=== PATIENT | male | born 1955 | race Caucasian/White ===

== ENCOUNTER 2018-09-02 08:38 | Emergency (ER) | payer SELFPAY ==
[2018-09-02 08:38] VITALS: BP 122/69; PULSE 50; RESP 14; TEMP 36.6; O2SAT 100; BMI 20.3
--- NOTE | 2018-09-02 08:54 | CT_ITS ---
STUDY: CT ABDOMEN AND PELVIS WITH CONTRAST REASON FOR EXAM: Male, 63 years old. Epigastric pain. RADIATION DOSAGE (If Supplied By Facility): CTDIvol = ( 12.21 ) mGy, DLP = ( 410.29 ) mGycm TECHNIQUE: Transaxial images were obtained from the dome of the diaphragm to the symphysis pubis with oral contrast. 100 IV/Oral Isovue 300 was administered. Sagittal and coronal images were reconstructed. Individualized dose optimization techniques were used for this CT. COMPARISON: Comparison is made with prior examination dated August 28, 2007. FINDINGS: The visualized lung bases are unremarkable. The visualized portions of the heart are within normal limits. Normal liver. Normal gallbladder and extrahepatic biliary system. Normal spleen. Normal pancreas. Normal bilateral adrenal glands. Normal right kidney. Normal left kidney. Normal visualized stomach. Normal small intestine. Normal colon. The appendix is visualized and appears normal. Normal abdominal aorta. Normal inferior vena cava. Normal retroperitoneum. Normal urinary bladder. There is enlargement of the prostate gland. It measures 5.3 cm x 4.1 cm. This causes indentation at the bladder base. Normal abdominal wall. Normal osseous structures. CT/Abdomen/Pelvis WITH Contrast IMPRESSION: Prostatic enlargement. Electronically Signed: Nomi Ferrara, at 11:06 EDT , Service support ,
--- NOTE | 2018-09-02 08:55 | ED.VIS.GEN ---
History of Present Illness Chief Complaint: Abd Pain Informant: Patient Onset: Today Timing: Continuous Current Severity: Moderate Maximum Severity: Moderate Narrative: Patient presents with abdominal pain that started earlier this morning. He has nausea vomiting no diarrhea. He has no back pain. He denies any testicle pain or urinary symptoms. The pain woke him up from sleep. It is periumbilical. He has a complicated history, about 10 years ago apparently had appendicitis with an abscess that ended up having percutaneous drainage and treated medically with antibiotics, he never followed up for an appendectomy has been okay since then. Past Medical History - Allergies and Home Meds Allergies/Adverse Reactions: Allergies No Known Allergies Allergy (Verified 09/02/18 08:38) Primary Care Physician: NOT,DEFINED [NON-STAFF] - Prior records reviewed: Yes Past Medical History: - - Appendicitis without appendectomy Lives: Spouse/ Significant Other Drugs: None Review of Systems All systems negative except as indicated General: Denies: Fever Cardiovascular: Denies: Chest pain Respiratory: Denies: Dyspnea Gastrointestinal: Reports: Abdominal pain, Nausea, Vomiting. Denies: Diarrhea, Constipation Genitourinary: Denies: Dysuria, Hematuria Musculoskeletal: Denies: Back pain Skin: Denies: Abrasions Neurological: Denies: Weakness Psych: Denies: Anxiety Endocrine: Denies: Polyuria Physical Exam Vital Signs/Narrative: Vital Signs Temp Pulse Resp BP Pulse Ox 09/02/18 08:38 97.8 F 50 L 14 122/69 H 100 General: Well nourished, Well developed, Acute Distress - Appears in some distress Head: Normocephalic, Atraumatic Eyes: Perrl, EOMI ENT: Moist mucous membranes, No rhinorrhea Neck: Supple, Nontender Cardiovascular: Regular rate, Regular rhythm, No murmurs Respiratory: No distress, CTA bilaterally, Chest nontender Abdomen: Soft - There is abdominal tenderness mostly periumbilical. There is no guarding or rebound. Back: Nontender, Normal Inspection. Negative for: CVA tenderness Extremities: Nontender, No edema Skin: Normal color, No rash Neurological: Alert, Oriented x3, Cranial nerves II-XII grossly intact, Normal Strength, Normal Sensation Psychological: Normal affect, Normal Mood Diagnostic/Tx/Re-eval - Medical Decision Making ED work-up including abdominal CT. However symptoms have been ongoing for about 6 hours I told him this could be early presentation and may not yet show up on CT or blood work. I told the patient to follow-up tomorrow with PCP or repeat abdominal exam, if he worsens he has fever chills or worsening symptoms he needs to return. Otherwise I will treat him with antiemetics for home. ED Disposition - Plan for ED Patient: Disposition: Home or Assisted Living Diagnosis: Abdominal pain Instructions: ABDOMINAL PAIN, Unkown Cause, (Male) Prescriptions: Ondansetron [Zofran Odt] 4 mg PO Q8H PRN PRN #10 tab PRN Reason: Nausea Prescription Printed Referrals: Trista Ghosh MD [STAFF PHYSICIAN] -
[2018-09-02 09:43] LABS: Absolute Lymphocyte Count 0.71 X10^3/ul (0.83-4.51); Absolute Neutrophil Count 6.9 X10^3/uL (2.0-7.7); Basophil# 0.02 X10^3/uL; Basophil% 0.2 % (0-1); Eosinophil# 0.01 X10^3/uL; Eosinophils% 0.1 % (0-5); Hemoglobin 15.4 g/dl (13.0-16.5); Lymphocyte # 0.71 X10^3/ul (4.0); Lymphocyte % 8.6 % (19-41); Mean Corp Hgb Conc 33.5 g/gl (32-36); Mean Corpuscular Hgb 31.4 pg (27.0-32.0); Mean Corpuscular Volume 93.7 fL (80-94); Mean Platelet Vol. 10.3 fl (6.2-12.0); Monocyte# 0.54 X10^3/uL; Monocyte% 6.6 % (0-10); Neutrophil # 6.92 X10^3/uL (2.7-7.7); Neutrophil % 84.4 % (47-70); Platelet Count 170 K/mm3 (150-450); RBC Distribution Width CV 12.6 % (11.6-14.6); Red Blood Count 4.91 M/mm3 (4.6-6.2); White Blood Count 8.2 K/mm3 (4.4-11.0)
[2018-09-02 09:51] LABS: POSITIVE COUNT NO; POSITIVE DIFFERENTIAL NO; POSITIVE MORPHOLOGY NO
[2018-09-02 09:59] LABS: BUN 16 mg/dL (7-18); Creatinine, Serum 1.04 mg/dL (0.70-1.30); Estimated Creatinine Clearance 71.78 ml/min; Glucose 112 mg/dL (74-106)
[2018-09-02 10:00] LABS: ALB/GLOB Ratio 1.3 RATIO (0.9-2.4); AST(SGOT) 28 U/L (15-37); Alanine Aminotransfer ALT/SGPT 38 U/L (16-61); Albumin, Serum 4.3 g/dL (3.2-5.0); Alkaline Phosphatase 65 U/L (45-117); Anion Gap 5 (5-15); BUN/Creat Ratio 15.4 RATIO (10-20); Chloride 106 mmol/L (98-107); EST Glomerular Filtration Rate 77 mL/min (>60); Est Glom Filt Rate - Afr Amer 93 mL/min (>60); Globulin 3.4 g/dL (2.2-4.2); Lipase 160 U/L (73-393); Potassium 4.5 mmol/L (3.5-5.1); Protein, Total 7.7 g/dL (6.4-8.2); Sodium Level 142 mmol/L (136-145)
[2018-09-02 11:26] VITALS: BP 138/67; PULSE 72; RESP 15; O2SAT 96
== END 2018-09-02 11:44 | disposition home or self-care (01) ==
PROVIDERS: Emergency Provider Emergency Medicine
DX: R10.33 Periumbilical pain (principal)
CPT/HCPCS: 74177; 80053; 83690; 85025; 99283; Q9967; A4216

== ENCOUNTER → 2022-07-12 | Outpatient (CLI) | payer MEDICARE, SELFPAY ==
[2022-07-12 15:21] LABS: Absolute Lymphocyte Count 1.15 X10^3/uL (0.83-4.51); Absolute Neutrophil Count 1.5 X10^3/uL (2.0-7.7); Basophil# 0.05 X10^3/uL; Basophil% 1.6 % (0-1); Eosinophil# 0.07 X10^3/uL; Eosinophils% 2.2 % (0-5); Hematocrit 44.2 % (40-54); Hemoglobin 14.1 g/dL (13.0-16.5); Lymphocyte # 1.15 X10^3/ul (0.83-4.51); Lymphocyte % 36.7 % (19-41); Mean Corp Hgb Conc 31.9 g/dL (32-36); Mean Corpuscular Hgb 30.6 pg (27.0-32.0); Mean Corpuscular Volume 95.9 fL (80-94); Mean Platelet Vol. 10.3 fl (6.2-12.0); Monocyte# 0.34 X10^3/uL; Monocyte% 10.9 % (0-10); NRBC Flagged by Analyzer 0 % (0-5); Neutrophil # 1.52 X10^3/uL (2.7-7.7); Neutrophil % 48.6 % (47-70); Platelet Count 206 K/mm3 (150-450); Red Blood Count 4.61 M/mm3 (4.6-6.2); White Blood Count 3.1 K/mm3 (4.4-11.0)
[2022-07-12 16:03] LABS: ALB/GLOB Ratio 1.1 RATIO (0.9-2.4); AST(SGOT) 22 U/L (15-37); Alanine Aminotransfer ALT/SGPT 29 U/L (16-61); Alkaline Phosphatase 59 U/L (45-117); Anion Gap 6 (5-15); BUN 13 mg/dL (7-18); BUN/Creat Ratio 14.9 RATIO (10-20); Calcium,Total 8.9 mg/dL (8.5-10.1); Chloride 104 mmol/L (98-107); Creatinine, Serum 0.88 mg/dL (0.70-1.30); EST Glomerular Filtration Rate 93 mL/min (>60); Est Glom Filt Rate - Afr Amer 112 mL/min (>60); Globulin 3.5 g/dL (2.2-4.2); Glucose 85 mg/dL (74-106); Potassium 3.9 mmol/L (3.5-5.1); Protein, Total 7.5 g/dL (6.4-8.2); Sodium Level 140 mmol/L (136-145); Thyroid Stim Hormone (TSH) 3.16 uIU/mL (0.358-3.74)
== END | disposition home or self-care (01) ==
LOC: MFPLAB 11:35
PROVIDERS: PCP Family Medicine; Visit Provider Family Medicine
DX: R00.2 Palpitations (principal)
CPT/HCPCS: 36415; 80053; 84443; 85025

== ENCOUNTER → 2022-08-02 | Outpatient (CLI) | payer MEDICARE, SELFPAY ==
--- NOTE | 2022-08-02 10:10 | ECHOCS_ITS ---
Reason For Study: Palpitations Procedure This was a 2D Doppler, Color Flow transthoracic echocardiogram. Technically difficult due to body habitus. Contrast injection was performed. Exam performed in department. Left Ventricle Normal LV size. Left ventricular systolic function is normal. The estimated ejection fraction is 60 %. No regional wall motion abnormalities noted. Right Ventricle Normal RV size. Normal systolic function. Atria Normal left atrium. Normal right atrium. Mitral Valve Equivocal mitral valve prolapse. Tricuspid Valve Normal tricuspid valve. Mild tricuspid valve insufficiency. Pulmonary artery systolic pressure is 25 mmHg. Aortic Valve Trisinus/trileaflet aortic valve. Pulmonic Valve Normal pulmonic valve. Great Vessels Normal aortic root. The pulmonary artery is normal size. Normal inferior vena cava. Pericardium/Pleural No pericardial effusion. Medication 22 gauge I.V. with prn adaptor inserted into right arm. Diluted definity 2ml given slow IV push to enhance endocardial definition. Performed a rapid injection of agitated mix of 9 cc saline and 1cc air to assess for atrial septal defect. MMode/2D Measurements & Calculations LVIDd: 4.9 cm IVSd: 0.57 cm Ao root diam: 3.5 cm LVIDs: 3.2 cm LVPWd: 0.62 cm LA dimension: 3.3 cm RVDd: 4.4 cm FS: 35.6 % LAV(MOD-bp): 52.9 ml LA A4 area: 20.5 cm2 RA A4 area: 20.1 cm2 LAV(MOD-bp) Indexed: 30.9 ml/m2 LAV(MOD-sp2): 45.2 ml LAV(MOD-sp4): 60.6 ml Time Measurements MV dec time: 0.19 sec Doppler Measurements & Calculations MV E max piyush: 88.1 cm/sec Lat Peak E' Piyush: 16.9 cm/sec Med Peak E' Piyush: 20.2 cm/sec MV A max piyush: 39.1 cm/sec E/E' lat: 5.2 E/E' med: 4.4 MV E/A: 2.3 MV V2 max: 103.0 cm/sec MV P1/2t max piyush: 103.6 cm/sec Ao V2 max: 111.0 cm/sec MV max P.2 mmHg MV P1/2t: 68.5 msec Ao max P.9 mmHg MV V2 mean: 43.7 cm/sec MV dec slope: 442.5 cm/sec2 Ao V2 mean: 75.3 cm/sec MV mean P.98 mmHg Ao mean P.7 mmHg MV V2 VTI: 30.8 cm MVA(P1/2t): 3.2 cm2 Ao V2 VTI: 25.8 cm AV (velocity ratio): 0.93 LV V1 max: 107.2 cm/sec PA V2 max: 102.9 cm/sec TR max piyush: 234.3 cm/sec LV V1 max P.6 mmHg PA V2 mean: 72.5 cm/sec TR max P.0 mmHg LV V1 mean P.6 mmHg LV V1 mean: 76.1 cm/sec LV V1 VTI: 24.0 cm ECHO/Echo Complete W/ Contrast Interpretation Summary Normal LV size. Left ventricular systolic function is normal. The estimated ejection fraction is 60 %. Pulmonary artery systolic pressure is 25 mmHg. Mild tricuspid valve insufficiency. Contrast injection was performed. Ordering Physician: Kaylee Chakraborty Referring Physician: Kaylee Chakraborty Performed By: Juan M Randolph RCS
== END | disposition home or self-care (01) ==
LOC: CVS 10:08
PROVIDERS: PCP Family Medicine; Referring Provider Family Medicine; Visit Provider Family Medicine
DX: R00.2 Palpitations (principal)
CPT/HCPCS: 93306; Q9957; A4216; C8929

== ENCOUNTER → 2022-08-03 | Outpatient (CLI) | payer MEDICARE, SELFPAY ==
[2022-08-03 12:59] LABS: Magnesium 2.7 mg/dL (1.6-2.6)
== END | disposition home or self-care (01) ==
LOC: LAB 12:07
PROVIDERS: PCP Family Medicine; Referring Provider Internal Medicine Cardiovascular Disease; Visit Provider Internal Medicine Cardiovascular Disease
DX: I47.29 Other ventricular tachycardia (principal)
CPT/HCPCS: 36415; 83735

== ENCOUNTER → 2022-08-10 | Outpatient (CLI) | payer MEDICARE, SELFPAY ==
--- NOTE | 2022-08-10 14:09 | STRESSREP ---
Stress Test Report Pharmacologic myocardial perfusion stress test. 67-year-old man with a history of abnormal EKG and V. tach Resting EKG demonstrates sinus bradycardia with a rate of 53 bpm. Resting blood pressure is 112/70 mmHg. 0.4 mg of regadenoson was infused per usual protocol followed by rapid intravenous saline flush injection. Continuous EKG monitoring was performed. The maximum heart rate was 80 bpm which was 51% of max impacted heart rate the maximum workload was 1 metabolic equivalent. At rest there were no ST or T wave changes noted to suggest ischemia and at peak infusion nonspecific ST changes were noted which did not meet the criteria for ischemia. No clinical angina is noted. The final blood pressure was 114/60 mmHg. Myocardial perfusion protocol. 11.2 mCi of technetium 99m sestamibi was injected at rest. 0.4 mg of regadenoson was infused per usual protocol. At peak infusion 34.7 mCi of technetium 99m sestamibi was injected stress images were obtained stress and rest images were reconstructed and compared in the short axis vertical long and horizontal long axis. Gated images were also obtained. Perfusion SPECT analysis: Review of the stress images demonstrate normal uptake of tracer noted in all areas of the myocardium. The resting images similar demonstrated normal uptake of tracer noted in all areas of the myocardium. No areas of reversibility are noted to suggest ischemia and no previous infarct is noted. Gated SPECT analysis: The gated ejection fraction is 72%. Conclusion: Normal pharmacologic myocardial perfusion stress test. Preserved ejection fraction.
== END | disposition home or self-care (01) ==
PROVIDERS: PCP Family Medicine; Referring Provider Internal Medicine Cardiovascular Disease; Visit Provider Internal Medicine Cardiovascular Disease
DX: R94.31 Abnormal electrocardiogram [ECG] [EKG] (principal); I47.29 Other ventricular tachycardia
CPT/HCPCS: 78452; 93017; A9500; A4216; J2785

== ENCOUNTER 2022-09-19 13:09 | Outpatient (RCR) | payer MEDICARE, SELFPAY ==
[2022-09-19 13:19] VITALS: BP 109/62; PULSE 57; RESP 18; TEMP 36.4; BMI 20.4
--- NOTE | 2022-09-19 14:29 | PCM.WC.HP ---
History of Present Illness Date of Service: 09/19/22 Chief Complaint: Venous stasis ulceration, left medial malleolus History of Wound: This is a 67-year-old male who presents with a venous stasis ulceration near the left medial malleolus. The venous ulceration has been present for approximately 2 months. He has had 2 prior ulcerations at this site in the past. He has recently been treated by [facility] by a variety of means, including the use of Unna boots and triamcinolone 0.1% cream topically. He has just completed a course of doxycycline 100 mg p.o. twice daily for 10 days. More recently, he has been wearing graduated compression stockings, knee-high length, of 20 to 30 mmHg compression, obtained at [facility] in [place], [place]. The stockings have been worn from morning until bedtime each day. The patient sleeps on a flat mattress at night. He is active. He is able to ambulate without limitation. 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 He denies a history of thrombophlebitis. He has undergone no prior vein procedures in the past. The patient is of normal body habitus, with a BMI of 20.4. Laboratory studies have been obtained as recently as July 12, 2022, with results as follows: White blood count 3.1, hemoglobin 14.1, hematocrit 44.2, platelets 206,000, sodium 140, chloride 104, potassium 3.9, BUN 13, creatinine 0.88, glucose 85, calcium 8.9, magnesium 2.7, total bilirubin 0.60, AST 22, ALT 29, alkaline phosphatase 59, total protein 7.5, albumin 4.0. The patient's history is negative for myocardial infarction, diabetes mellitus, cerebrovascular accident, thyroid disease, pulmonary disease, renal disease, hypertension, and hyperlipidemia. He has a history of atrial fibrillation, psoriasis, and ulcerative colitis. 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, chronic, with ulcer and inflammation Venous stasis ulcer Allergy/AdvReac Type Severity Reaction Status Date / Time No Known Allergies Allergy Verified 09/19/22 13:41 Surgical History History of appendectomy Social History Smoking Status: Never smoker alcohol intake: never substance use type: does not use caffeine: Yes Type: coffee Number of servings: 2 Vital Signs Vital Signs Vital Signs: 09/19/22 13:19 Temperature 97.5 F L Temperature Source Temporal Pulse Rate 57 L Respiratory Rate 18 Blood Pressure 109/62 Blood Pressure Mean 77 Blood Pressure Source Monitor Weight Weight: 150 lb 11.094 oz Body Mass Index (BMI) 20.4 Physical Exam Const alert, oriented x3, no apparent distress, average body habitus and well nourished Constitutional Narrative: The patient's BMI is 20.4. General Appearance: cooperative, comfortable, well kempt and well developed Orientation / Consciousness: awake, oriented to person, oriented to place and oriented to time Exam Limitations: no limitations HEENT normocephalic, head/scalp atraumatic and hearing grossly normal bilaterally Head and Scalp: normal to inspection, normocephalic and atraumatic Face and Sinus: normal facial exam Nose: external nose normal External Ear: external ears normal Eyes PERRL and EOMs intact bilaterally General Eye: normal appearance of both eyes Neck full ROM Resp normal respiratory effort, normal air movement, no retractions and no use of accessory muscles Effort and Inspection: able to speak in complete sentences Extremity no calf tenderness General Extremity: Negative for clubbing or cyanosis Skin Wound Narrative: Peripheral extremities are warm and well-perfused. Pedal pulses are palpable bilaterally. Scattered varicosities are noted bilaterally, with multiple large varicosities noted on the left upper medial calf. Severe curry phlebectatica is noted near the right medial malleolus. Curry phlebectatica, hyperpigmentation, and lipodermatosclerosis are noted near the left medial malleolus. Several clustered venous ulcerations are noted near the left medial malleolus. These ulcerations extend through the dermal layers and into the subcutaneous fat. There is no sign of infection or cellulitis. A corn is noted on the plantar aspect of the left foot. Neuro oriented x3, CN's II-XII intact bilaterally, moves all extremities and no focal motor deficits Sensorium / Orientation: awake, alert, oriented to person, oriented to place and oriented to time Psych Appearance: grossly normal and appropriate Attitude: calm Activity / Motor Behavior: appropriate eye contact Speech: normal speech Mood & Affect: euthymic mood Thought Process: normal thought process Thought Content: normal thought content Attention / Concentration: attention grossly intact Debridement Note Debridement Note Wound debrided: Venous ulceration, left medial malleolus Laterality: Left Type of Debridement: Excisional debridement Anesthesia Used: 5% Lidocaine Gel Depth: Down to and including healthy tissue and in the subcutaneous layer Percentage of wound debrided: 100 Instrument Used: 3mm curette Tissue Removed: Bioburden and nonviable tissue Severity: Fat Layer Exposed Amount of bleeding with debridement: Mild Bleeding Controlled with: Compression and gauze Patient tolerated procedure: Patient tolerated procedure well Post-Debridement Measurements and Additional Note: Post-Debridement Measurements/Treatment - Nurse 1 - General Ulcer Assessment Start: 09/19/22 13:19 Freq: Status: Active Protocol: ESPERANZA Activity Type Activity Date Activity User E-sign Co-sign Detail Recorded Client Recorded Date Recorded By Document 09/19/22 13:19 DL [id number] 09/19/22 13:37 DL Edit Result 09/19/22 13:19 DL (1) [id number] 09/19/22 13:52 DL (1) Height => 6 ft Weight => 150 lb 11.094 oz Weight in Pounds => 150.7 lbs Body Mass Index (BMI) => 20.4 BMI Classification => Normal BSA - Nikhil => 1.89 09/19/22 13:19 - Today's Visit Information Type of service Initial Visit Arrival Mode Ambulatory Transfer Assistance None Patient Identification Verified (Name & Yes ) Patient Requires Transmission-Based No Precautions Height and Weight Height 6 ft Weight 150 lb 11.094 oz Weight in Pounds 150.7 lbs Body Mass Index (BMI) 20.4 BMI Classification Normal BSA - Nikhil 1.89 Vital Signs Temperature (97.8 F-99.1 F) 97.5 F L Temperature Source Temporal Pulse Rate (60-100) 57 L Pulse Location Monitor Respiratory Rate (12-18) 18 Respiratory rate source Observation Blood Pressure (90/60-120/80) 109/62 Blood Pressure Mean 77 Source Monitor Pain Scale: 0-10 Numeric Is Patient Pain Free? Yes Lower Extremity Assessment/ Foot Assessment/ Toe Nail Assessment Right -Posterior Tibial Palpable Yes -Dorsalis Pedis Palpable Yes -Extremity Color Normal -Hair Growth on Legs No -Hair Growth on Toes No -Temperature of Extremity Warm -Capillary Refill Less than 3 Seconds -Other Deformity No -Prior Foot Ulcer No -Charcot Joint No -Prior Amputation No -Thick No -Discolored No -Deformed No -Improper Length & Hygeine No Left -Posterior Tibial Palpable Yes -Dorsalis Pedis Palpable Yes -Extremity Color Normal -Hair Growth on Legs No -Hair Growth on Toes No -Temperature of Extremity Warm -Capillary Refill Less than 3 Seconds -Dependent Rubor No -Blanched when Elevated No -Lipodermatosclerosis No -Other Deformity No -Prior Foot Ulcer No -Charcot Joint No -Prior Amputation No -Thick No -Discolored No -Deformed No -Improper Length & Hygeine No Neuropathy Assessment Feet - Top Side and Bottom <Entered> (a) Communication Assessment Preferred language Arabic Able to Read Yes Able to Write Yes Communication Tools None Right Hearing Abillity Normal Left Hearing Abillity Normal Visual Assistive Devices Glasses Teaching Assessment Preferences Verbal,Written, Demonstration Barriers to Learning None Readiness To Learn Good Willingness to Engage in Self Management Med Activies Readiness to Engage in Self Management Med Activities Anxiety Level Calm Cooperation Cooperative Perception Coherent Interest in Health Problem Asks Questions Education Importance Acknowledges Need Does Patient Smoke tobacco or other No substances Smoking Status Never smoker Is Patient Diabetic No Functional Assessment Recent Decline in Ability to Perform Denies Any Declines Culture/Rastafari/Workforce Management Coordinator Cultural/Rastafari Needs that may affect No Treatment Plan Would you allow our hospital material damage appraiser to No meet you for the purpose of spiritual/ emotional support? Teaching: Wound Center Discharge Instructions -Person Taught Patient *Welcome to the Wound Center -Person Taught Patient (a) 1 - + WC - Nurse 1 - General Ulcer Measurement Start: 09/19/22 13:19 Freq: Status: Active Protocol: Activity Type Activity Date Activity User E-sign Co-sign Detail Recorded Client Recorded Date Recorded By Document 09/19/22 13:19 DL [id number] 09/19/22 13:37 DL 09/19/22 13:19 Wound Center Nurse 1 #1 L Med. Ankle Cluster -Current Size (cm) - Length 5.2 -Current Size (cm) - Width 0.6 -Current Size (cm) - Depth 0.2 -Total Square Cm 3.12 -Photo Taken Yes -Classification - Thickness Full Thickness without Exposed Support Structure -Exudate Amt Small -Exudate Type Serosanguineous -Wound Margin Distinct, Outline Attached -Granulation Amt Small (1-33%) -Granulation Quality Crestone -Necrosis Amt Large (67-100%) -Necrotic Tissue Type Adherent Slough -Structure Exposed N/A -Texture (Daisha-wound Skin Appearance) Scarring -Moisture (Daisha-wound Skin Appearance) No Abnormality -Color (Daisha-wound Skin Appearance) No Abnormality -Temperature (Daisha-wound Skin No Abnormality Appearance) (Pt Warm) -Ulcer Cleansing Rinsed/ Irrigated with Saline -Foul Odor after Cleansing No -Anesthetic Used 5% Lidocaine Gel Right Calf (cm) 35 Right Ankle (cm) 21 Left Calf (cm) 32.6 Left Ankle (cm) 20.7 - Nurse 3 - General Ulcer D/C NN Start: 09/19/22 13:19 Freq: Status: Active Protocol: Activity Type Activity Date Activity User E-sign Co-sign Detail Recorded Client Recorded Date Recorded By Document 09/19/22 14:20 [id number] 09/19/22 14:22 09/19/22 14:20 Wound Care Center Nurse 3 #1 L Med. Ankle Cluster -Ulcer Cleansing Rinsed/ Irrigated with Saline -Foul Odor after Cleansing No -Primary Dressing Applied C Hydrogel ($) -Primary Dressing Covered/Secured with Dry Gauze & Roll Gauze, Secured with Tape romel -Stockings Yes Treatment Response Procedure Tolerated Well Pain Scale: 0-10 Numeric Is Patient Pain Free? Yes WC - Visit Discharge Discharge Condition Stable Ambulatory Status Ambulatory Transportation Private Auto Assessment/Plan Assessment/Plan (1) Venous stasis ulcer: CODE(S): I83.009 - Varicose veins of unspecified lower extremity with ulcer of unspecified site; L97.909 - Non-pressure chronic ulcer of unspecified part of unspecified lower leg with unspecified severity QUALIFIERS: Laterality: left Non-pressure ulcer stage: with fat layer exposed Varicose vein presence: with varicose veins Venous stasis ulcer site: ankle Qualified Code(s): I83.023 - Varicose veins of left lower extremity with ulcer of ankle; L97.322 - Non-pressure chronic ulcer of left ankle with fat layer exposed (2) Venous hypertension, chronic, with ulcer and inflammation: CODE(S): I87.339 - Chronic venous hypertension (idiopathic) with ulcer and inflammation of unspecified lower extremity QUALIFIERS: Laterality: left Qualified Code(s): I87.332 - Chronic venous hypertension (idiopathic) with ulcer and inflammation of left lower extremity (3) Varicose veins with ulcer and inflammation: CODE(S): I83.209 - Varicose veins of unspecified lower extremity with both ulcer of unspecified site and inflammation; L97.909 - Non-pressure chronic ulcer of unspecified part of unspecified lower leg with unspecified severity (4) Chronic venous insufficiency: CODE(S): I87.2 - Venous insufficiency (chronic) (peripheral) (5) Left leg swelling: CODE(S): M79.89 - Other specified soft tissue disorders (6) Leg pain, left: CODE(S): M79.605 - Pain in left leg (7) Paroxysmal atrial fibrillation: CODE(S): I48.0 - Paroxysmal atrial fibrillation (8) Lipodermatosclerosis of left lower extremity: CODE(S): I83.12 - Varicose veins of left lower extremity with inflammation (9) Hyperpigmentation: CODE(S): L81.9 - Disorder of pigmentation, unspecified (10) Curry phlebectatica paraplantaris: CODE(S): R09.89 - Other specified symptoms and signs involving the circulatory and respiratory systems (11) History of ulcerative colitis: CODE(S): Z87.19 - Personal history of other diseases of the digestive system (12) Psoriasis: CODE(S): L40.9 - Psoriasis, unspecified PLAN: Plan This is a 67-year-old generally healthy white male who presents with severe lower extremity venous disease in his lower extremities. He presented with a venous ulceration over the left medial malleolus, which has been present for approximately 2 months. Despite treatment by the Dermatology service with Unna boots, triamcinolone 0.1% cream, and oral doxycycline, the ulceration persisted. The patient has been referred for definitive management. The patient has in his possession graduated compression stockings of 20 to 30 mmHg, of knee-high length. These are to be worn on a daily basis. They are to be donned early each day, and doffed at bedtime. The patient is to continue sleeping on a flat surface at night. He has been encouraged to elevate his lower extremities during daytime hours as well, is much as possible. His legs are to be elevated to heart level, or higher. The patient has been urged to avoid prolonged idle sitting and standing. Activity has been encouraged. The patient's weight is optimal. A healthy, nutritional diet has been advised. We are to implement the use of collagen hydrogel topically to the ulceration, which will be applied by the patient on a daily basis. The patient has been instructed in the appropriate means of application. We are to obtain a venous duplex examination to assess the status of the deep and superficial venous systems in the lower extremities bilaterally. The patient is to be referred for podiatric evaluation relative to the corn on his left plantar foot. The patient is to return in 1 week for reassessment. Total time: 55 minutes
== END 2022-09-25 23:59 | disposition home or self-care (01) ==
LOC: WC 13:09
PROVIDERS: PCP Family Medicine; Referring Provider Dermatology Pediatric Dermatology; Visit Provider Surgery
DX: I83.223 Varicose veins of left lower extremity with both ulcer of ankle and inflammation (principal); L97.322 Non-pressure chronic ulcer of left ankle with fat layer exposed; I48.0 Paroxysmal atrial fibrillation; M79.605 Pain in left leg; L40.9 Psoriasis, unspecified; L81.9 Disorder of pigmentation, unspecified; Z87.19 Personal history of other diseases of the digestive system
CPT/HCPCS: 11042; 99213; G0463

== ENCOUNTER 2022-09-26 14:20 | Outpatient (CLI) | payer MEDICARE, SELFPAY ==
[2022-09-26 17:47] LABS: Absolute Lymphocyte Count 1.21 X10^3/uL (0.83-4.51); Absolute Neutrophil Count 1.7 X10^3/uL (2.0-7.7); Basophil# 0.06 X10^3/uL; Basophil% 1.8 % (0-1); Eosinophil# 0.09 X10^3/uL; Eosinophils% 2.7 % (0-5); Lymphocyte # 1.21 X10^3/ul (0.83-4.51); Lymphocyte % 35.8 % (19-41); Mean Corp Hgb Conc 32.6 g/dL (32-36); Mean Corpuscular Hgb 31.3 pg (27.0-32.0); Mean Platelet Vol. 10.7 fl (6.2-12.0); Monocyte# 0.34 X10^3/uL; Monocyte% 10.1 % (0-10); NRBC Flagged by Analyzer 0 % (0-5); Neutrophil # 1.68 X10^3/uL (2.7-7.7); Neutrophil % 49.6 % (47-70); Platelet Count 180 K/mm3 (150-450); RBC Distribution Width CV 12.3 % (11.6-14.6); RBC Distribution Width SD 43.8 fl (35.1-43.9); Red Blood Count 4.48 M/mm3 (4.6-6.2); White Blood Count 3.4 K/mm3 (4.4-11.0)
== END 2022-09-26 23:59 | disposition home or self-care (01) ==
LOC: MFPLAB 14:21
PROVIDERS: PCP Family Medicine; Visit Provider Family Medicine
DX: R00.2 Palpitations (principal); K51.90 Ulcerative colitis, unspecified, without complications; M79.605 Pain in left leg
CPT/HCPCS: 36415; 85025; 93970; 99213; G0463

== ENCOUNTER 2022-10-10 10:45 | Outpatient (RCR) | payer MEDICARE, SELFPAY ==
[2022-09-26 00:24] VITALS: BP 109/62; PULSE 57; RESP 18; TEMP 36.4; BMI 20.4
[2022-09-26 11:40] VITALS: BP 113/71; PULSE 51; RESP 18; TEMP 36.4
--- NOTE | 2022-09-26 12:12 | PCM.WC.HP ---
History of Present Illness Date of Service: 09/26/22 Chief Complaint: Venous stasis ulceration, left medial malleolus History of Wound: This is a 67-year-old male who presented with a venous stasis ulceration near the left medial malleolus. The venous ulceration had been present for approximately 2 months. He has had 2 prior ulcerations at this site in the past. He has recently been treated by [facility] by a variety of means, including the use of Unna boots and triamcinolone 0.1% cream topically. He has just completed a course of doxycycline 100 mg p.o. twice daily for 10 days. More recently, he has been wearing graduated compression stockings, knee-high length, of 20 to 30 mmHg compression, obtained at [facility] in [place], [place]. The stockings have been worn from morning until bedtime each day. The patient sleeps on a flat mattress at night. He is active. He is able to ambulate without limitation. 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 He denies a history of thrombophlebitis. He has undergone no prior vein procedures in the past. The patient is of normal body habitus, with a BMI of 20.4. Laboratory studies have been obtained as recently as July 12, 2022, with results as follows: White blood count 3.1, hemoglobin 14.1, hematocrit 44.2, platelets 206,000, sodium 140, chloride 104, potassium 3.9, BUN 13, creatinine 0.88, glucose 85, calcium 8.9, magnesium 2.7, total bilirubin 0.60, AST 22, ALT 29, alkaline phosphatase 59, total protein 7.5, albumin 4.0. The patient's history is negative for myocardial infarction, diabetes mellitus, cerebrovascular accident, thyroid disease, pulmonary disease, renal disease, hypertension, and hyperlipidemia. He has a history of atrial fibrillation, psoriasis, and ulcerative colitis. 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 Varicose veins with ulcer and inflammation Venous hypertension, chronic, with ulcer and inflammation Venous stasis ulcer Allergy/AdvReac Type Severity Reaction Status Date / Time No Known Allergies Allergy Verified 09/19/22 13:41 Surgical History History of appendectomy Social History Smoking Status: Never smoker alcohol intake: never substance use type: does not use caffeine: Yes Type: coffee Number of servings: 2 Vital Signs Vital Signs Vital Signs: 09/26/22 11:40 09/26/22 00:24 Temperature 97.6 F L 97.5 F L Temperature Source Temporal Pulse Rate 51 L 57 L Respiratory Rate 18 18 Blood Pressure 113/71 109/62 Blood Pressure Mean 85 77 Blood Pressure Source Monitor Weight Weight: 150 lb 11.094 oz Body Mass Index (BMI) 20.4 Physical Exam Const alert, oriented x3, no apparent distress, average body habitus and well nourished Constitutional Narrative: The patient's BMI is 20.4. General Appearance: cooperative, comfortable, well kempt and well developed Orientation / Consciousness: awake, oriented to person, oriented to place and oriented to time Exam Limitations: no limitations HEENT normocephalic, head/scalp atraumatic and hearing grossly normal bilaterally Head and Scalp: normal to inspection, normocephalic and atraumatic Face and Sinus: normal facial exam Nose: external nose normal External Ear: external ears normal Eyes PERRL and EOMs intact bilaterally General Eye: normal appearance of both eyes Neck full ROM Resp normal respiratory effort, normal air movement, no retractions and no use of accessory muscles Effort and Inspection: able to speak in complete sentences Extremity no calf tenderness General Extremity: Negative for clubbing or cyanosis Skin Wound Narrative: Peripheral extremities are warm and well-perfused. Pedal pulses are palpable bilaterally. Scattered varicosities are noted bilaterally, with multiple large varicosities noted on the left upper medial calf. Severe curry phlebectatica is noted near the right medial malleolus. Curry phlebectatica, hyperpigmentation, and lipodermatosclerosis are noted near the left medial malleolus. Several clustered venous ulcerations are noted near the left medial malleolus. These ulcerations extend through the dermal layers and into the subcutaneous fat. They are smaller in size and much improved since the patient's prior visit. There is no sign of infection or cellulitis. No significant swelling is noted in the patient's lower extremities. A corn is noted on the plantar aspect of the left foot. Neuro oriented x3, CN's II-XII intact bilaterally, moves all extremities and no focal motor deficits Sensorium / Orientation: awake, alert, oriented to person, oriented to place and oriented to time Psych Appearance: grossly normal and appropriate Attitude: calm Activity / Motor Behavior: appropriate eye contact Speech: normal speech Mood & Affect: euthymic mood Thought Process: normal thought process Thought Content: normal thought content Attention / Concentration: attention grossly intact Debridement Note Debridement Note No debridement was completed: No debridement was completed today Post-Debridement Measurements and Additional Note: Post-Debridement Measurements/Treatment LILY - Nurse 1 - General Ulcer Assessment Start: 09/26/22 11:39 Freq: Status: Active Protocol: ESPERANZA Activity Type Activity Date Activity User E-sign Co-sign Detail Recorded Client Recorded Date Recorded By Document 09/26/22 11:40 DL [id number] 09/26/22 11:46 DL 09/26/22 11:40 - Today's Visit Information Type of service 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 Any new allergies or adverse reactions No Had a fall/change in ADL's that may No increase risk of falls Signs or symptoms of abuse and/or No neglect since last visit Have you been in the hospital since your No last visit? Has dressing in place as prescribed Yes Has compression in place as prescribed Yes Has offloadiing in place as prescribed No Experienced any changes in pain level or No management Pain Scale: 0-10 Numeric Is Patient Pain Free? Yes - Nurse 1 - General Ulcer Measurement Start: 09/26/22 11:39 Freq: Status: Active Protocol: Activity Type Activity Date Activity User E-sign Co-sign Detail Recorded Client Recorded Date Recorded By Document 09/26/22 11:40 DL [id number] 09/26/22 11:46 DL 09/26/22 11:40 Wound Center Nurse 1 #1 L Med. Ankle Cluster -Current Size (cm) - Length 5.6 -Current Size (cm) - Width 0.9 -Current Size (cm) - Depth 0.1 -Total Square Cm 5.04 -Exudate Amt Small -Exudate Type Serosanguineous -Wound Margin Distinct, Outline Attached -Granulation Amt Large (67-100%) -Granulation Quality [place] -Necrosis Amt None Present (0 %) -Structure Exposed N/A -Texture (Daisha-wound Skin Appearance) Scarring -Moisture (Daisha-wound Skin Appearance) No Abnormality -Color (Daisha-wound Skin Appearance) Erythema -Temperature (Daisha-wound Skin No Abnormality Appearance) (Pt Warm) -Tenderness on Palpation (Daisha-wound No Skin Appearance) -Ulcer Cleansing Rinsed/ Irrigated with Saline -Foul Odor after Cleansing No -Anesthetic Used 5% Lidocaine Gel - Nurse 3 - General Ulcer D/C NN Start: 09/26/22 11:39 Freq: Status: Active Protocol: Activity Type Activity Date Activity User E-sign Co-sign Detail Recorded Client Recorded Date Recorded By Document 09/26/22 12:05 KW [id number] 09/26/22 12:06 KW 09/26/22 12:05 Wound Care Center Nurse 3 -Ulcer Cleansing Rinsed/ Irrigated with Saline -Primary Dressing Covered/Secured with Dry Gauze Pain Scale: 0-10 Numeric Is Patient Pain Free? 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; L97.329 - Non-pressure chronic ulcer of left ankle with unspecified severity QUALIFIERS: Non-pressure ulcer stage: with fat layer exposed Qualified Code(s): I83.223 - 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; L97.322 - Non-pressure chronic ulcer of left ankle with fat layer exposed (2) Venous stasis ulcer: CODE(S): I83.009 - Varicose veins of unspecified lower extremity with ulcer of unspecified site; L97.909 - Non-pressure chronic ulcer of unspecified part of unspecified lower leg with unspecified severity QUALIFIERS: Venous stasis ulcer site: ankle Varicose vein presence: with varicose veins Laterality: left Non-pressure ulcer stage: with fat layer exposed Qualified Code(s): I83.023 - Varicose veins of left lower extremity with ulcer of ankle; L97.322 - Non-pressure chronic ulcer of left ankle with fat layer exposed (3) Chronic venous hypertension (idiopathic) with ulcer and inflammation of left lower extremity: CODE(S): I87.332 - Chronic venous hypertension (idiopathic) with ulcer and inflammation of left lower extremity (4) Venous hypertension, chronic, with ulcer and inflammation: CODE(S): I87.339 - Chronic venous hypertension (idiopathic) with ulcer and inflammation of unspecified lower extremity QUALIFIERS: Laterality: left Qualified Code(s): I87.332 - Chronic venous hypertension (idiopathic) with ulcer and inflammation of left lower extremity (5) Varicose veins with ulcer and inflammation: CODE(S): I83.209 - Varicose veins of unspecified lower extremity with both ulcer of unspecified site and inflammation; L97.909 - Non-pressure chronic ulcer of unspecified part of unspecified lower leg with unspecified severity (6) Chronic venous insufficiency: CODE(S): I87.2 - Venous insufficiency (chronic) (peripheral) (7) Left leg swelling: CODE(S): M79.89 - Other specified soft tissue disorders (8) Leg pain, left: CODE(S): M79.605 - Pain in left leg (9) Paroxysmal atrial fibrillation: CODE(S): I48.0 - Paroxysmal atrial fibrillation (10) Lipodermatosclerosis of left lower extremity: CODE(S): I83.12 - Varicose veins of left lower extremity with inflammation (11) Hyperpigmentation: CODE(S): L81.9 - Disorder of pigmentation, unspecified (12) Curry phlebectatica paraplantaris: CODE(S): R09.89 - Other specified symptoms and signs involving the circulatory and respiratory systems (13) History of ulcerative colitis: CODE(S): Z87.19 - Personal history of other diseases of the digestive system (14) Psoriasis: CODE(S): L40.9 - Psoriasis, unspecified PLAN: Plan This is a 67-year-old generally healthy white male who presented with severe lower extremity venous disease in his lower extremities. He presented with a venous ulceration over the left medial malleolus, which had been present for approximately 2 months. Despite treatment by the Dermatology service with Unna boots, triamcinolone 0.1% cream, and oral doxycycline, the ulceration persisted. The patient has been referred for definitive management. The patient has in his possession graduated compression stockings of 20 to 30 mmHg, of knee-high length. These are to be worn on a daily basis. They are to be donned early each day, and doffed at bedtime. The patient is to continue sleeping on a flat surface at night. He has been encouraged to elevate his lower extremities during daytime hours as well, is much as possible. His legs are to be elevated to heart level, or higher. The patient has been urged to avoid prolonged idle sitting and standing. Activity has been encouraged. The patient's weight is optimal. A healthy, nutritional diet has been advised. We are to continue the use of collagen hydrogel topically to the ulceration, which will be applied by the patient on a daily basis. The patient has been instructed in the appropriate means of application. We are to obtain a venous duplex examination to assess the status of the deep and superficial venous systems in the lower extremities bilaterally. The patient is to be referred for podiatric evaluation relative to the corn on his left plantar foot. The patient is to return in 2 weeks for reassessment. Total time: 26 minutes
--- NOTE | 2022-09-26 12:24 | VDLE_ITS ---
Reason For Study: non healing wound RIGHT LEFT CFV is compressible, spontaneous, phasic, CFV is compressible, spontaneous, phasic, competent and demonstrates normal competent, and demonstrates normal augmentation. augmentation. FV is compressible, spontaneous, phasic, FV is compressible, spontaneous, phasic, competent and demonstrates normal competent and demonstrates normal augmentation. augmentation. POP V is compressible, spontaneous, phasic, POP V is compressible, spontaneous, phasic, competent and demonstrates normal competent and demonstrates normal augmentation. augmentation. T/P Trunk is compressible. T/P Trunk is compressible. PTV is compressible. PTV is compressible. RT PerV is compressible. LT PerV is compressible. SFJ is INCOMPETENT and measures .83 cm. SFJ is INCOMPETENT and measures .81 cm. GSV proximal thigh measures .28 x .32 cm. GSV proximal thigh measures .38 x .45 cm. GSV at knee measures .39 x .39 cm. GSV at knee measures .33 x .37 cm. GSV INCOMPETENT throughout for greater than GSV INCOMPETENT throughout for greater than 0.5 seconds. 0.5 seconds. SSV proximal calf is INCOMPETENT for greater SSV proximal calf is INCOMPETENT for greater than 0.5 seconds and measures .23 x .26 cm. than 0.5 seconds and measures .44 x .45 cm. Manager Specialty V from the GSV to FV at the Manager Specialty V from the GSV to FV at the prox/mid thigh is incompetent for greater prox/mid thigh is incompetent for greater than .5 seconds. than .5 seconds. ASV proximal calf is INCOMPETENT for greater ASV mid thigh is INCOMPETENT for greater than than 0.5 seconds and measures .18 x .22 cm. 0.5 seconds and measures .39 x .41 cm. Procedure This is a venous duplex using B-mode, color flow and spectral Doppler. Exam performed in department. The exam was diagnostic. VL/Venous Duplex US - Hernandez Extrem Interpretation Summary Deep veins of the lower extremities are bilaterally patent and compressible seg mentally. There is no evidence of deep vein thrombosis on either side. Valvular competence appears in tact within the proximal deep venous systems bilaterally. The great saphenous veins appear bila terally patent and compressible segmentally. Sapheno-femoral junctions are bilaterally incompetent . Segmental valvular incompetence is noted within the great saphenous veins bilaterally. Small saphe nous veins are patent and incompetent bilaterally. The accessory saphenous vein in the right proximal calf is incompetent. The accessory saphenous vein in the left mid-thigh is incompetent. An incompete nt boat outboard engine mechanic vein is noted in the right proximal/mid-thigh. An incompetent boat outboard engine mechanic vein is noted in the left proximal/mid-thigh. Ordering Physician: Jose Armando Cox Performed By: Castro Santana RVT
[2022-10-10 10:56] VITALS: BP 108/48; PULSE 70; RESP 18; TEMP 35.9; BMI 20.4
--- NOTE | 2022-10-10 13:03 | HP.PCM_ITS ---
History of Present Illness Date of Service: 10/10/22 Chief Complaint: Venous stasis ulceration, left medial malleolus History of Wound: This is a 67-year-old male who presented with a venous stasis ulceration near the left medial malleolus. The venous ulceration had been present for approximately 2 months. He has had 2 prior ulcerations at this site in the past. He has recently been treated by [facility] by a variety of means, including the use of Unna boots and triamcinolone 0.1% cream topically. He has just completed a course of doxycycline 100 mg p.o. twice daily for 10 days. More recently, he has been wearing graduated compression stockings, knee-high length, of 20 to 30 mmHg compression, obtained at [facility] in [place], [place]. The stockings have been worn from morning until bedtime each day. The patient sleeps on a flat mattress at night. He is active. He is able to ambulate without limitation. 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 He denies a history of thrombophlebitis. He has undergone no prior vein procedures in the past. The patient is of normal body habitus, with a BMI of 20.4. Laboratory studies have been obtained as recently as July 12, 2022, with results as follows: White blood count 3.1, hemoglobin 14.1, hematocrit 44.2, platelets 206,000, sodium 140, chloride 104, potassium 3.9, BUN 13, creatinine 0.88, glucose 85, calcium 8.9, magnesium 2.7, total bilirubin 0.60, AST 22, ALT 29, alkaline phosphatase 59, total protein 7.5, albumin 4.0. The patient's history is negative for myocardial infarction, diabetes mellitus, cerebrovascular accident, thyroid disease, pulmonary disease, renal disease, hypertension, and hyperlipidemia. He has a history of atrial fibrillation, psoriasis, and ulcerative colitis. 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 Varicose veins with ulcer and inflammation Venous hypertension, chronic, with ulcer and inflammation Venous stasis ulcer Allergy/AdvReac Type Severity Reaction Status Date / Time No Known Allergies Allergy Verified 09/19/22 13:41 Surgical History History of appendectomy Social History Smoking Status: Never smoker alcohol intake: never substance use type: does not use caffeine: Yes Type: coffee Number of servings: 2 Vital Signs Vital Signs Vital Signs: 10/10/22 10:56 Temperature 96.6 F L Temperature Source Temporal Pulse Rate 70 Respiratory Rate 18 Blood Pressure 108/48 L Blood Pressure Mean 68 Blood Pressure Source Monitor Weight Weight: 150 lb 11.094 oz Body Mass Index (BMI) 20.4 Physical Exam Const alert, oriented x3, no apparent distress, average body habitus and well nourished Constitutional Narrative: The patient's BMI is 20.4. General Appearance: cooperative, comfortable, well kempt and well developed Orientation / Consciousness: awake, oriented to person, oriented to place and oriented to time Exam Limitations: no limitations HEENT normocephalic, head/scalp atraumatic and hearing grossly normal bilaterally Head and Scalp: normal to inspection, normocephalic and atraumatic Face and Sinus: normal facial exam Nose: external nose normal External Ear: external ears normal Eyes PERRL and EOMs intact bilaterally General Eye: normal appearance of both eyes Neck full ROM Resp normal respiratory effort, normal air movement, no retractions and no use of accessory muscles Effort and Inspection: able to speak in complete sentences Extremity no calf tenderness General Extremity: Negative for clubbing or cyanosis Skin Wound Narrative: Peripheral extremities are warm and well-perfused. Pedal pulses are palpable bilaterally. Scattered varicosities are noted bilaterally, with multiple large varicosities noted on the left upper medial calf. Severe curry phlebectatica is noted near the right medial malleolus. Curry phlebectatica, hyperpigmentation, and lipodermatosclerosis are noted near the left medial malleolus. Several clustered venous ulcerations are noted near the left medial malleolus. These ulcerations extend through the dermal layers and into the subcutaneous fat. They are smaller in size and much improved since the patient's prior visit. There is no sign of infection or cellulitis. No significant swelling is noted in the patient's lower extremities. Neuro oriented x3, CN's II-XII intact bilaterally, moves all extremities and no focal motor deficits Sensorium / Orientation: awake, alert, oriented to person, oriented to place and oriented to time Psych Appearance: grossly normal and appropriate Attitude: calm Activity / Motor Behavior: appropriate eye contact Speech: normal speech Mood & Affect: euthymic mood Thought Process: normal thought process Thought Content: normal thought content Attention / Concentration: attention grossly intact Debridement Note Debridement Note Wound debrided: Venous ulceration, left medial malleolus; cluster Laterality: Left Type of Debridement: Excisional debridement Anesthesia Used: 5% Lidocaine Gel Depth: Down to and including healthy tissue and in the subcutaneous layer Percentage of wound debrided: 100 Instrument Used: 3mm curette Tissue Removed: Bioburden Severity: Fat Layer Exposed Amount of bleeding with debridement: Mild Bleeding Controlled with: Compression and gauze Patient tolerated procedure: Patient tolerated procedure well Post-Debridement Measurements and Additional Note: Post-Debridement Measurements/Treatment - Nurse 1 - General Ulcer Assessment Start: 09/26/22 11:39 Freq: Status: Active Protocol: ESPERANZA Activity Type Activity Date Activity User E-sign Co-sign Detail Recorded Client Recorded Date Recorded By Document 09/26/22 11:40 DL [id number] 09/26/22 11:46 DL Document 10/10/22 10:56 DL [id number] 10/10/22 10:57 DL 09/26/22 10/10/22 11:40 10:56 - Today's Visit Information Type of service Follow-up Visit Follow-up Visit (Physician/VOCATIONAL AIDE (Physician/VOCATIONAL AIDE ) ) Arrival Mode Ambulatory Ambulatory Transfer Assistance None None Patient Identification Verified (Name & Yes Yes ) Patient Requires Transmission-Based No Precautions Height and Weight Weight 150 lb 11.094 oz Weight in Pounds 150.7 lbs Weight Measurement Method Estimated by Patient Body Mass Index (BMI) 20.4 BMI Classification Normal Vital Signs Temperature (97.8 F-99.1 F) 97.6 F L 96.6 F L Temperature Source Temporal Temporal Pulse Rate (60-100) 51 L 70 Pulse Location Monitor Monitor Respiratory Rate (12-18) 18 18 Respiratory rate source Observation Observation Blood Pressure (90/60-120/80) 113/71 108/48 L Blood Pressure Mean 85 68 Source Monitor Monitor History Since Last Visit- (Skip if this is Patient's initial visit) Have you changed medications since your No No last visit? Any new allergies or adverse reactions No No Had a fall/change in ADL's that may No No increase risk of falls Signs or symptoms of abuse and/or No No neglect since last visit Have you been in the hospital since your No No last visit? Has dressing in place as prescribed Yes Yes Has compression in place as prescribed Yes Yes Has offloadiing in place as prescribed No N/A Experienced any changes in pain level or No No management Pain Scale: 0-10 Numeric Is Patient Pain Free? Yes Yes WC - Nurse 1 - General Ulcer Measurement Start: 09/26/22 11:39 Freq: Status: Active Protocol: Activity Type Activity Date Activity User E-sign Co-sign Detail Recorded Client Recorded Date Recorded By Document 09/26/22 11:40 DL [id number] 09/26/22 11:46 DL Document 10/10/22 10:56 DL [id number] 10/10/22 10:57 DL 09/26/22 10/10/22 11:40 10:56 Wound Center Nurse 1 #1 L Med. Ankle Cluster -Current Size (cm) - Length 5.6 4.8 -Current Size (cm) - Width 0.9 0.3 -Current Size (cm) - Depth 0.1 0.1 -Total Square Cm 5.04 1.44 -Exudate Amt Small None Present -Exudate Type Serosanguineous -Wound Margin Distinct, Distinct, Outline Outline Attached Attached -Granulation Amt Large (67-100%) None Present (0 %) -Granulation Quality [place] -Necrosis Amt None Present (0 Small (1-33%) %) -Necrotic Tissue Type Adherent Slough -Structure Exposed N/A N/A -Texture (Daisha-wound Skin Appearance) Scarring Scarring -Moisture (Daisha-wound Skin Appearance) No Abnormality No Abnormality -Color (Daisha-wound Skin Appearance) Erythema Hemosiderin Staining -Temperature (Daisha-wound Skin No Abnormality No Abnormality Appearance) (Pt Warm) (Pt Warm) -Tenderness on Palpation (Daisha-wound No No Skin Appearance) -Ulcer Cleansing Rinsed/ Rinsed/ Irrigated with Irrigated with Saline Saline -Foul Odor after Cleansing No No -Anesthetic Used 5% Lidocaine 5% Lidocaine Gel Gel WC - Nurse 2 - General Ulcer CM Notes Start: 09/26/22 11:39 Freq: Status: Active Protocol: Activity Type Activity Date Activity User E-sign Co-sign Detail Recorded Client Recorded Date Recorded By Document 10/10/22 12:26 PL [id number] 10/10/22 12:27 PL 10/10/22 12:26 Wound Center Nurse 2 -Time 11:05 -Correct Patient Yes -Correct Side, Site, Position Yes -Correct Procedure Yes -Procedure Performed Yes -Type of Procedure Debridement -Clinical Debridement Subcutaneous -Tissue Removed Subcutaneous -Post Debridement (cm) - Length 4.8 -Post Debridement (cm) - Width 0.3 -Post Debridement (cm) - Depth 0.1 -Total Square (Post) (cm) 1.44 -Area of Debridement (cm) - Length 4.8 -Area of Debridement (cm) - Width 0.3 -Total Square (Area) (cm) 1.44 -Tunneling No -Undermining/Tunneling No -Circular Undermining No -Wound/Ulcer Outcome Not Healed -Ulcer Cleansing Rinsed/ Irrigated with Saline -Foul Odor after Cleansing No -Bioengineered Tissue No -Bleeding Controlled with Pressure -Treatment Response Procedure Tolerated Well -Debridement - Subq, 1st 20sq cm Yes Pain Scale: 0-10 Numeric Is Patient Pain Free? Yes - Nurse 3 - General Ulcer D/C NN Start: 09/26/22 11:39 Freq: Status: Active Protocol: Activity Type Activity Date Activity User E-sign Co-sign Detail Recorded Client Recorded Date Recorded By Document 09/26/22 12:05 KW [id number] 09/26/22 12:06 KW Document 10/10/22 11:28 MW [id number] 10/10/22 11:28 MW 09/26/22 10/10/22 12:05 11:28 Wound Care Center Nurse 3 #1 L Med. Ankle Cluster -Ulcer Cleansing Rinsed/ Rinsed/ Irrigated with Irrigated with Saline Saline -Foul Odor after Cleansing No -Negative Pressure Wound Therapy N/A -Primary Dressing Applied C Hydrogel ($) -Primary Dressing Covered/Secured with Dry Gauze Dry Gauze, Secured with Tape Left -Lotion applied to leg before No compression wrap -Stockings Yes Treatment Response Procedure Tolerated Well Pain Scale: 0-10 Numeric Is Patient Pain Free? 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; L97.329 - Non-pressure chronic ulcer of left ankle with unspecified severity QUALIFIERS: Non-pressure ulcer stage: with fat layer exposed Qualified Code(s): I83.223 - 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; L97.322 - Non-pressure chronic ulcer of left ankle with fat layer exposed (2) Venous stasis ulcer: CODE(S): I83.009 - Varicose veins of unspecified lower extremity with ulcer of unspecified site; L97.909 - Non-pressure chronic ulcer of unspecified part of unspecified lower leg with unspecified severity QUALIFIERS: Venous stasis ulcer site: ankle Varicose vein presence: with varicose veins Laterality: left Non-pressure ulcer stage: with fat layer exposed Qualified Code(s): I83.023 - Varicose veins of left lower extremity with ulcer of ankle; L97.322 - Non-pressure chronic ulcer of left ankle with fat layer exposed (3) Chronic venous hypertension (idiopathic) with ulcer and inflammation of left lower extremity: CODE(S): I87.332 - Chronic venous hypertension (idiopathic) with ulcer and inflammation of left lower extremity (4) Venous hypertension, chronic, with ulcer and inflammation: CODE(S): I87.339 - Chronic venous hypertension (idiopathic) with ulcer and inflammation of unspecified lower extremity QUALIFIERS: Laterality: left Qualified Code(s): I87.332 - Chronic venous hypertension (idiopathic) with ulcer and inflammation of left lower extremity (5) Varicose veins with ulcer and inflammation: CODE(S): I83.209 - Varicose veins of unspecified lower extremity with both ulcer of unspecified site and inflammation; L97.909 - Non-pressure chronic ulcer of unspecified part of unspecified lower leg with unspecified severity (6) Chronic venous insufficiency: CODE(S): I87.2 - Venous insufficiency (chronic) (peripheral) (7) Left leg swelling: CODE(S): M79.89 - Other specified soft tissue disorders (8) Leg pain, left: CODE(S): M79.605 - Pain in left leg (9) Paroxysmal atrial fibrillation: CODE(S): I48.0 - Paroxysmal atrial fibrillation (10) Lipodermatosclerosis of left lower extremity: CODE(S): I83.12 - Varicose veins of left lower extremity with inflammation (11) Hyperpigmentation: CODE(S): L81.9 - Disorder of pigmentation, unspecified (12) Curry phlebectatica paraplantaris: CODE(S): R09.89 - Other specified symptoms and signs involving the circulatory and respiratory systems (13) History of ulcerative colitis: CODE(S): Z87.19 - Personal history of other diseases of the digestive system (14) Psoriasis: CODE(S): L40.9 - Psoriasis, unspecified PLAN: Plan This is a 67-year-old generally healthy white male who presented with severe lower extremity venous disease in his lower extremities. He presented with a venous ulceration over the left medial malleolus, which had been present for approximately 2 months. Despite treatment by the Dermatology service with Unna boots, triamcinolone 0.1% cream, and oral doxycycline, the ulceration persisted. The patient was referred for definitive management. The patient has in his possession graduated compression stockings of 20 to 30 mmHg, of knee-high length. These are to be worn on a daily basis. They are to be donned early each day, and doffed at bedtime. The patient is to continue sleeping on a flat surface at night. He has been encouraged to elevate his lower extremities during daytime hours as well, as much as possible. His legs are to be elevated to heart level, or higher. The patient has been urged to avoid prolonged idle sitting and standing. Activity has been encouraged. The patient's weight is optimal. A healthy, nutritional diet has been advised. We are to continue the use of collagen hydrogel topically to the ulceration, which will be applied by the patient on a daily basis. The patient has been instructed in the appropriate means of application. A venous duplex examination has been performed on September 26, 2022, the results of which reveal incompetence of the right great saphenous vein, right small saphenous vein, and right accessory saphenous vein in the proximal calf. Additionally, incompetence is noted in the left great saphenous vein, left small saphenous vein, and left accessory saphenous vein in the mid thigh. An incompetent pulley worker vein is noted in the thighs bilaterally. The implications of these findings have been discussed with patient in detail. We have discussed the potential role of endovenous laser ablation of the incompetent superficial veins in the left lower extremity. The indications and risks have been discussed in detail. The long-term benefits and expectations have also been discussed thoroughly. It is felt that the patient will derive long-term benefit from an endovenous ablation procedure. This issue will be discussed with the patient further in the coming weeks. The patient is to return in 1 week for reassessment. Total time: 25 minutes
== END 2022-10-26 23:59 ==
LOC: WC 10:45
PROVIDERS: PCP Family Medicine; Referring Provider Dermatology Pediatric Dermatology; Visit Provider Surgery
DX: I83.223 Varicose veins of left lower extremity with both ulcer of ankle and inflammation (principal); L97.322 Non-pressure chronic ulcer of left ankle with fat layer exposed; I48.0 Paroxysmal atrial fibrillation; L40.9 Psoriasis, unspecified; M79.605 Pain in left leg
CPT/HCPCS: 11042; 93970; 99213; G0463

== ENCOUNTER 2022-11-14 11:00 | Outpatient (RCR) | payer MEDICARE, SELFPAY ==
[2022-10-27 00:13] VITALS: BP 108/48; PULSE 70; RESP 18; TEMP 35.9; BMI 20.4
[2022-10-31 11:04] VITALS: BP 103/53; PULSE 61; RESP 18; TEMP 36.2; BMI 20.4
--- NOTE | 2022-10-31 13:18 | PCM.WC.HP ---
History of Present Illness Date of Service: 10/31/22 Chief Complaint: Venous stasis ulceration, left medial malleolus History of Wound: This is a 67-year-old male who presented with a venous stasis ulceration near the left medial malleolus. The venous ulceration had been present for approximately 2 months. He has had 2 prior ulcerations at this site in the past. He had recently been treated by [facility] by a variety of means, including the use of Unna boots and triamcinolone 0.1% cream topically. He had just completed a course of doxycycline 100 mg p.o. twice daily for 10 days. More recently, he had been wearing graduated compression stockings, knee-high length, of 20 to 30 mmHg compression, obtained at [facility] in [place], [place]. The stockings have been worn from morning until bedtime each day. The patient sleeps on a flat mattress at night. He is active. He is able to ambulate without limitation. 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 He denies a history of thrombophlebitis. He has undergone no prior vein procedures in the past. The patient is of normal body habitus, with a BMI of 20.4. Laboratory studies have been obtained as recently as July 12, 2022, with results as follows: White blood count 3.1, hemoglobin 14.1, hematocrit 44.2, platelets 206,000, sodium 140, chloride 104, potassium 3.9, BUN 13, creatinine 0.88, glucose 85, calcium 8.9, magnesium 2.7, total bilirubin 0.60, AST 22, ALT 29, alkaline phosphatase 59, total protein 7.5, albumin 4.0. The patient's history is negative for myocardial infarction, diabetes mellitus, cerebrovascular accident, thyroid disease, pulmonary disease, renal disease, hypertension, and hyperlipidemia. He has a history of atrial fibrillation, psoriasis, and ulcerative colitis. 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 Varicose veins with ulcer and inflammation Venous hypertension, chronic, with ulcer and inflammation Venous stasis ulcer Allergy/AdvReac Type Severity Reaction Status Date / Time No Known Allergies Allergy Verified 09/19/22 13:41 Surgical History History of appendectomy Social History Smoking Status: Never smoker alcohol intake: never substance use type: does not use caffeine: Yes Type: coffee Number of servings: 2 Vital Signs Vital Signs Vital Signs: 10/31/22 11:04 Temperature 97.2 F L Temperature Source Temporal Pulse Rate 61 Respiratory Rate 18 Blood Pressure 103/53 L Blood Pressure Mean 69 Blood Pressure Source Monitor Weight Weight: 150 lb 11.094 oz Body Mass Index (BMI) 20.4 Physical Exam Const alert, oriented x3, no apparent distress, average body habitus and well nourished Constitutional Narrative: The patient's BMI is 20.4. General Appearance: cooperative, comfortable, well kempt and well developed Orientation / Consciousness: awake, oriented to person, oriented to place and oriented to time Exam Limitations: no limitations HEENT normocephalic, head/scalp atraumatic and hearing grossly normal bilaterally Head and Scalp: normal to inspection, normocephalic and atraumatic Face and Sinus: normal facial exam Nose: external nose normal External Ear: external ears normal Eyes PERRL and EOMs intact bilaterally General Eye: normal appearance of both eyes Neck full ROM Resp normal respiratory effort, normal air movement, no retractions and no use of accessory muscles Effort and Inspection: able to speak in complete sentences Extremity no calf tenderness General Extremity: Negative for clubbing or cyanosis Skin Wound Narrative: Peripheral extremities are warm and well-perfused. Pedal pulses are palpable bilaterally. Scattered varicosities are noted bilaterally, with multiple large varicosities noted on the left upper medial calf. Severe curry phlebectatica is noted near the right medial malleolus. Curry phlebectatica, hyperpigmentation, and lipodermatosclerosis are noted near the left medial malleolus. Several clustered venous ulcerations are noted near the left medial malleolus, with a reduction in size and evidence of healing. These ulcerations extend through the dermal layers and into the subcutaneous fat. They are smaller in size and much improved since the patient's prior visit. Healing is now nearly complete. There is no sign of infection or cellulitis. No significant swelling is noted in the patient's lower extremities. Neuro oriented x3, CN's II-XII intact bilaterally, moves all extremities and no focal motor deficits Sensorium / Orientation: awake, alert, oriented to person, oriented to place and oriented to time Psych Appearance: grossly normal and appropriate Attitude: calm Activity / Motor Behavior: appropriate eye contact Speech: normal speech Mood & Affect: euthymic mood Thought Process: normal thought process Thought Content: normal thought content Attention / Concentration: attention grossly intact Debridement Note Debridement Note Wound debrided: Venous ulceration, left medial malleolus; cluster Laterality: Left Type of Debridement: Excisional debridement Anesthesia Used: 5% Lidocaine Gel Depth: Down to and including healthy tissue and in the subcutaneous layer Percentage of wound debrided: 100 Instrument Used: 3mm curette Tissue Removed: Bioburden Severity: Fat Layer Exposed Amount of bleeding with debridement: Mild Bleeding Controlled with: Compression and gauze Patient tolerated procedure: Patient tolerated procedure well Post-Debridement Measurements and Additional Note: Post-Debridement Measurements/Treatment - Nurse 1 - General Ulcer Assessment Start: 10/31/22 11:03 Freq: Status: Active Protocol: ESPERANZA Activity Type Activity Date Activity User E-sign Co-sign Detail Recorded Client Recorded Date Recorded By Document 10/31/22 11:04 LISA [id number] 10/31/22 11:09 LISA 10/31/22 11:04 - Today's Visit Information Type of service Follow-up Visit (Physician/[employer] ) Arrival Mode Ambulatory Transfer Assistance None Patient Identification Verified (Name & Yes ) Patient Requires Transmission-Based No Precautions Height and Weight Body Mass Index (BMI) 20.4 BMI Classification Normal Vital Signs Temperature (97.8 F-99.1 F) 97.2 F L Temperature Source Temporal Pulse Rate (60-100) 61 Pulse Location Monitor Respiratory Rate (12-18) 18 Respiratory rate source Observation Blood Pressure (90/60-120/80) 103/53 L Blood Pressure Mean 69 Source Monitor History Since Last Visit- (Skip if this is Patient's initial visit) Have you changed medications since your No last visit? Any new allergies or adverse reactions No Had a fall/change in ADL's that may No increase risk of falls Signs or symptoms of abuse and/or No neglect since last visit Have you been in the hospital since your No last visit? Has dressing in place as prescribed Yes Has compression in place as prescribed Yes Has offloadiing in place as prescribed N/A Experienced any changes in pain level or No management Pain Scale: 0-10 Numeric Is Patient Pain Free? Yes - Nurse 1 - General Ulcer Measurement Start: 10/31/22 11:03 Freq: Status: Active Protocol: Activity Type Activity Date Activity User E-sign Co-sign Detail Recorded Client Recorded Date Recorded By Document 10/31/22 11:04 DL [id number] 10/31/22 11:09 DL 10/31/22 11:04 Wound Center Nurse 1 #1 L Med. Ankle Cluster -Current Size (cm) - Length 5 -Current Size (cm) - Width 0.5 -Current Size (cm) - Depth 0.1 -Total Square Cm 2.5 -Photo Taken Yes -Exudate Amt Small -Exudate Type Serosanguineous -Wound Margin Indistinct, Non -Visible -Granulation Amt Small (1-33%) -Granulation Quality [place] -Necrosis Amt Small (1-33%) -Necrotic Tissue Type Adherent Slough -Structure Exposed N/A -Texture (Daisha-wound Skin Appearance) Localized Edema ,Scarring -Moisture (Daisha-wound Skin Appearance) No Abnormality -Color (Daisha-wound Skin Appearance) Hemosiderin Staining -Temperature (Daisha-wound Skin No Abnormality Appearance) (Pt Warm) -Tenderness on Palpation (Daisha-wound No Skin Appearance) -Ulcer Cleansing Rinsed/ Irrigated with Saline -Foul Odor after Cleansing No -Anesthetic Used 5% Lidocaine Gel Left Calf (cm) 32 Left Ankle (cm) 20.4 WC - Nurse 3 - General Ulcer D/C NN Start: 10/31/22 11:03 Freq: Status: Active Protocol: Activity Type Activity Date Activity User E-sign Co-sign Detail Recorded Client Recorded Date Recorded By Document 10/31/22 11:31 DL [id number] 10/31/22 11:32 DL 10/31/22 11:31 Wound Care Center Nurse 3 #1 L Med. Ankle Cluster -Ulcer Cleansing Rinsed/ Irrigated with Saline -Foul Odor after Cleansing No -Other Dressing hydrogel romel -Stockings Yes Treatment Response Procedure Tolerated Well Pain Scale: 0-10 Numeric Is Patient Pain Free? 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; L97.322 - Non-pressure chronic ulcer of left ankle with fat layer exposed (2) Venous stasis ulcer: CODE(S): I83.009 - Varicose veins of unspecified lower extremity with ulcer of unspecified site; L97.909 - Non-pressure chronic ulcer of unspecified part of unspecified lower leg with unspecified severity QUALIFIERS: Venous stasis ulcer site: ankle Varicose vein presence: with varicose veins Laterality: left Non-pressure ulcer stage: with fat layer exposed Qualified Code(s): I83.023 - Varicose veins of left lower extremity with ulcer of ankle; L97.322 - Non-pressure chronic ulcer of left ankle with fat layer exposed (3) Chronic venous hypertension (idiopathic) with ulcer and inflammation of left lower extremity: CODE(S): I87.332 - Chronic venous hypertension (idiopathic) with ulcer and inflammation of left lower extremity (4) Venous hypertension, chronic, with ulcer and inflammation: CODE(S): I87.339 - Chronic venous hypertension (idiopathic) with ulcer and inflammation of unspecified lower extremity QUALIFIERS: Laterality: left Qualified Code(s): I87.332 - Chronic venous hypertension (idiopathic) with ulcer and inflammation of left lower extremity (5) Varicose veins with ulcer and inflammation: CODE(S): I83.209 - Varicose veins of unspecified lower extremity with both ulcer of unspecified site and inflammation; L97.909 - Non-pressure chronic ulcer of unspecified part of unspecified lower leg with unspecified severity (6) Chronic venous insufficiency: CODE(S): I87.2 - Venous insufficiency (chronic) (peripheral) (7) Left leg swelling: CODE(S): M79.89 - Other specified soft tissue disorders (8) Leg pain, left: CODE(S): M79.605 - Pain in left leg (9) Paroxysmal atrial fibrillation: CODE(S): I48.0 - Paroxysmal atrial fibrillation (10) Lipodermatosclerosis of left lower extremity: CODE(S): I83.12 - Varicose veins of left lower extremity with inflammation (11) Hyperpigmentation: CODE(S): L81.9 - Disorder of pigmentation, unspecified (12) Curry phlebectatica paraplantaris: CODE(S): R09.89 - Other specified symptoms and signs involving the circulatory and respiratory systems (13) History of ulcerative colitis: CODE(S): Z87.19 - Personal history of other diseases of the digestive system (14) Psoriasis: CODE(S): L40.9 - Psoriasis, unspecified PLAN: Plan This is a 67-year-old generally healthy white male who presented with severe lower extremity venous disease in his lower extremities. He presented with a venous ulceration over the left medial malleolus, which had been present for approximately 2 months. Despite treatment by the Dermatology service with Unna boots, triamcinolone 0.1% cream, and oral doxycycline, the ulceration persisted. The patient was referred for definitive management. The patient has in his possession graduated compression stockings of 20 to 30 mmHg, of knee-high length. These are to be worn on a daily basis. They are to be donned early each day, and doffed at bedtime. The patient is to continue sleeping on a flat surface at night. He has been encouraged to elevate his lower extremities during daytime hours as well, as much as possible. His legs are to be elevated to heart level, or higher. The patient has been urged to avoid prolonged idle sitting and standing. Activity has been encouraged. The patient's weight is optimal. A healthy, nutritional diet has been advised. We are to continue the use of collagen hydrogel topically to the ulceration, which will be applied by the patient on a daily basis. The patient has been instructed in the appropriate means of application. A venous duplex examination has been performed on September 26, 2022, the results of which reveal incompetence of the right great saphenous vein, right small saphenous vein, and right accessory saphenous vein in the proximal calf. Additionally, incompetence is noted in the left great saphenous vein, left small saphenous vein, and left accessory saphenous vein in the mid thigh. An incompetent rn transitional care vein is noted in the thighs bilaterally. The implications of these findings have been discussed with patient in detail. We have discussed the potential role of endovenous laser ablation of the incompetent superficial veins in the left lower extremity. The indications and risks have been discussed in detail. The long-term benefits and expectations have also been discussed thoroughly. It is felt that the patient will derive long-term benefit from an endovenous ablation procedure. After a lengthy discussion about the role of endovenous laser ablation of the incompetent superficial veins in the left lower extremity, the patient was given a brochure with information regarding the procedure. This issue will be discussed with the patient further in the coming weeks. The patient is to return in 1 week for reassessment. Total time: 24 minutes
[2022-11-14 11:16] VITALS: BP 104/44; PULSE 62; RESP 20; TEMP 36.2; BMI 20.4
--- NOTE | 2022-11-14 12:21 | PCM.WC.HP ---
History of Present Illness Date of Service: 11/14/22 Chief Complaint: Venous stasis ulceration, left medial malleolus History of Wound: This is a 67-year-old male who presented with a venous stasis ulceration near the left medial malleolus. The venous ulceration had been present for approximately 2 months. He has had 2 prior ulcerations at this site in the past. He had recently been treated by [facility] by a variety of means, including the use of Unna boots and triamcinolone 0.1% cream topically. He had just completed a course of doxycycline 100 mg p.o. twice daily for 10 days. More recently, he had been wearing graduated compression stockings, knee-high length, of 20 to 30 mmHg compression, obtained at [facility] in [place], [place]. The stockings have been worn from morning until bedtime each day. The patient sleeps on a flat mattress at night. He is active. He is able to ambulate without limitation. 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 He denies a history of thrombophlebitis. He has undergone no prior vein procedures in the past. The patient is of normal body habitus, with a BMI of 20.4. Laboratory studies have been obtained as recently as July 12, 2022, with results as follows: White blood count 3.1, hemoglobin 14.1, hematocrit 44.2, platelets 206,000, sodium 140, chloride 104, potassium 3.9, BUN 13, creatinine 0.88, glucose 85, calcium 8.9, magnesium 2.7, total bilirubin 0.60, AST 22, ALT 29, alkaline phosphatase 59, total protein 7.5, albumin 4.0. The patient's history is negative for myocardial infarction, diabetes mellitus, cerebrovascular accident, thyroid disease, pulmonary disease, renal disease, hypertension, and hyperlipidemia. He has a history of atrial fibrillation, psoriasis, and ulcerative colitis. 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 Varicose veins with ulcer and inflammation Venous hypertension, chronic, with ulcer and inflammation Venous stasis ulcer Allergy/AdvReac Type Severity Reaction Status Date / Time No Known Allergies Allergy Verified 09/19/22 13:41 Surgical History History of appendectomy Social History Smoking Status: Never smoker alcohol intake: never substance use type: does not use caffeine: Yes Type: coffee Number of servings: 2 Vital Signs Vital Signs Vital Signs: 11/14/22 11:16 Temperature 97.1 F L Temperature Source Temporal Pulse Rate 62 Respiratory Rate 20 H Blood Pressure 104/44 L Blood Pressure Mean 64 Blood Pressure Source Monitor Weight Weight: 150 lb 11.094 oz Body Mass Index (BMI) 20.4 Physical Exam Const alert, oriented x3, no apparent distress, average body habitus and well nourished Constitutional Narrative: The patient's BMI is 20.4. General Appearance: cooperative, comfortable, well kempt and well developed Orientation / Consciousness: awake, oriented to person, oriented to place and oriented to time Exam Limitations: no limitations HEENT normocephalic, head/scalp atraumatic and hearing grossly normal bilaterally Head and Scalp: normal to inspection, normocephalic and atraumatic Face and Sinus: normal facial exam Nose: external nose normal External Ear: external ears normal Eyes PERRL and EOMs intact bilaterally General Eye: normal appearance of both eyes Neck full ROM Resp normal respiratory effort, normal air movement, no retractions and no use of accessory muscles Effort and Inspection: able to speak in complete sentences Extremity no calf tenderness General Extremity: Negative for clubbing or cyanosis Skin Wound Narrative: Peripheral extremities are warm and well-perfused. Pedal pulses are palpable bilaterally. Scattered varicosities are noted bilaterally, with multiple large varicosities noted on the left upper medial calf. Severe curry phlebectatica is noted near the right medial malleolus. Curry phlebectatica, hyperpigmentation, and lipodermatosclerosis are noted near the left medial malleolus. A small venous ulcerations is noted near the left medial malleolus, with a reduction in size and evidence of healing. The ulceration extends through the dermal layers and into the subcutaneous fat. It is smaller in size and much improved since the patient's prior visit. Healing is now nearly complete. There is no sign of infection or cellulitis. No significant swelling is noted in the patient's lower extremities. Neuro oriented x3, CN's II-XII intact bilaterally, moves all extremities and no focal motor deficits Sensorium / Orientation: awake, alert, oriented to person, oriented to place and oriented to time Psych Appearance: grossly normal and appropriate Attitude: calm Activity / Motor Behavior: appropriate eye contact Speech: normal speech Mood & Affect: euthymic mood Thought Process: normal thought process Thought Content: normal thought content Attention / Concentration: attention grossly intact Debridement Note Debridement Note Wound debrided: Venous ulceration, left medial malleolus; cluster Laterality: Left Type of Debridement: Excisional debridement Anesthesia Used: 5% Lidocaine Gel Depth: Down to and including healthy tissue and in the subcutaneous layer Percentage of wound debrided: 100 Instrument Used: 3mm curette Tissue Removed: Bioburden Severity: Fat Layer Exposed Amount of bleeding with debridement: Mild Bleeding Controlled with: Compression and gauze Patient tolerated procedure: Patient tolerated procedure well Post-Debridement Measurements and Additional Note: Post-Debridement Measurements/Treatment - Nurse 1 - General Ulcer Assessment Start: 10/31/22 11:03 Freq: Status: Active Protocol: ESPERANZA Activity Type Activity Date Activity User E-sign Co-sign Detail Recorded Client Recorded Date Recorded By Document 10/31/22 11:04 DL [id number] 10/31/22 11:09 DL Document 11/14/22 11:16 DL Desktop 11/14/22 11:22 DL 10/31/22 11/14/22 11:04 11:16 - Today's Visit Information Type of service Follow-up Visit Follow-up Visit (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 (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 ) ) Arrival Mode Ambulatory Ambulatory Transfer Assistance None Patient Identification Verified (Name & Yes Yes ) Patient Requires Transmission-Based No No Precautions Height and Weight Body Mass Index (BMI) 20.4 20.4 BMI Classification Normal Normal Vital Signs Temperature (97.8 F-99.1 F) 97.2 F L 97.1 F L Temperature Source Temporal Temporal Pulse Rate (60-100) 61 62 Pulse Location Monitor Monitor Respiratory Rate (12-18) 18 20 H Respiratory rate source Observation Observation Blood Pressure (90/60-120/80) 103/53 L 104/44 L Blood Pressure Mean 69 64 Source Monitor Monitor History Since Last Visit- (Skip if this is Patient's initial visit) Have you changed medications since your No No last visit? Any new allergies or adverse reactions No No Had a fall/change in ADL's that may No No increase risk of falls Signs or symptoms of abuse and/or No No neglect since last visit Have you been in the hospital since your No No last visit? Has dressing in place as prescribed Yes Yes Has compression in place as prescribed Yes Yes Has offloadiing in place as prescribed N/A N/A Experienced any changes in pain level or No No management Pain Scale: 0-10 Numeric Is Patient Pain Free? Yes Yes WC - Nurse 1 - General Ulcer Measurement Start: 10/31/22 11:03 Freq: Status: Active Protocol: Activity Type Activity Date Activity User E-sign Co-sign Detail Recorded Client Recorded Date Recorded By Document 10/31/22 11:04 DL [id number] 10/31/22 11:09 DL Document 11/14/22 11:16 DL Desktop 11/14/22 11:22 DL 10/31/22 11/14/22 11:04 11:16 Wound Center Nurse 1 #1 L Med. Ankle Cluster -Current Size (cm) - Length 5 0.4 -Current Size (cm) - Width 0.5 0.4 -Current Size (cm) - Depth 0.1 0.1 -Total Square Cm 2.5 0.16 -Photo Taken Yes -Exudate Amt Small Small -Exudate Type Serosanguineous Serosanguineous -Wound Margin Indistinct, Non Distinct, -Visible Outline Attached -Granulation Amt Small (1-33%) Small (1-33%) -Granulation Quality Evant Red -Necrosis Amt Small (1-33%) Small (1-33%) -Necrotic Tissue Type Adherent Slough Adherent Slough -Structure Exposed N/A N/A -Texture (Daisha-wound Skin Appearance) Localized Edema Scarring ,Scarring -Moisture (Daisha-wound Skin Appearance) No Abnormality Dry/Scaly -Color (Daisha-wound Skin Appearance) Hemosiderin Hemosiderin Staining Staining -Temperature (Daisha-wound Skin No Abnormality Appearance) (Pt Warm) -Tenderness on Palpation (Daisha-wound No No Skin Appearance) -Ulcer Cleansing Rinsed/ Rinsed/ Irrigated with Irrigated with Saline Saline -Foul Odor after Cleansing No No -Anesthetic Used 5% Lidocaine 5% Lidocaine Gel Gel Left Calf (cm) 32 Left Ankle (cm) 20.4 31.8 Left Foot (cm) 19.2 WC - Nurse 2 - General Ulcer CM Notes Start: 10/31/22 11:03 Freq: Status: Active Protocol: Activity Type Activity Date Activity User E-sign Co-sign Detail Recorded Client Recorded Date Recorded By Document 10/31/22 14:19 PL [id number] 10/31/22 14:20 PL 10/31/22 14:19 Wound Center Nurse 2 #1 L Med. Ankle Cluster -Time 11:20 -Correct Patient Yes -Correct Side, Site, Position Yes -Correct Procedure Yes -Procedure Performed Yes -Type of Procedure Debridement -Clinical Debridement Subcutaneous -Tissue Removed Subcutaneous -Post Debridement (cm) - Length 5.0 -Post Debridement (cm) - Width 0.5 -Post Debridement (cm) - Depth 0.1 -Total Square (Post) (cm) 2.50 -Area of Debridement (cm) - Length 5.0 -Area of Debridement (cm) - Width 0.5 -Total Square (Area) (cm) 2.50 -Tunneling No -Undermining/Tunneling No -Circular Undermining No -Wound/Ulcer Outcome Not Healed -Ulcer Cleansing Rinsed/ Irrigated with Saline -Foul Odor after Cleansing No -Bioengineered Tissue No -Bleeding Controlled with Pressure -Treatment Response Procedure Tolerated Well -Debridement - Subq, 1st 20sq cm Yes Pain Scale: 0-10 Numeric Is Patient Pain Free? Yes - Nurse 3 - General Ulcer D/C NN Start: 10/31/22 11:03 Freq: Status: Active Protocol: Activity Type Activity Date Activity User E-sign Co-sign Detail Recorded Client Recorded Date Recorded By Document 10/31/22 11:31 DL [id number] 10/31/22 11:32 DL Document 11/14/22 11:41 JF Desktop 11/14/22 11:42 JF 10/31/22 11/14/22 11:31 11:41 Wound Care Center Nurse 3 #1 L Med. Ankle Cluster -Ulcer Cleansing Rinsed/ Rinsed/ Irrigated with Irrigated with Saline Saline -Foul Odor after Cleansing No No -Other Dressing hydrogel hydrogel -Primary Dressing Covered/Secured with Dry Gauze romel -Stockings Yes Treatment Response Procedure Tolerated Well Pain Scale: 0-10 Numeric Is Patient Pain Free? 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; L97.329 - Non-pressure chronic ulcer of left ankle with unspecified severity QUALIFIERS: Non-pressure ulcer stage: with fat layer exposed Qualified Code(s): I83.223 - 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; L97.322 - Non-pressure chronic ulcer of left ankle with fat layer exposed (2) Venous stasis ulcer: CODE(S): I83.009 - Varicose veins of unspecified lower extremity with ulcer of unspecified site; L97.909 - Non-pressure chronic ulcer of unspecified part of unspecified lower leg with unspecified severity QUALIFIERS: Venous stasis ulcer site: ankle Varicose vein presence: with varicose veins Laterality: left Non-pressure ulcer stage: with fat layer exposed Qualified Code(s): I83.023 - Varicose veins of left lower extremity with ulcer of ankle; L97.322 - Non-pressure chronic ulcer of left ankle with fat layer exposed (3) Chronic venous hypertension (idiopathic) with ulcer and inflammation of left lower extremity: CODE(S): I87.332 - Chronic venous hypertension (idiopathic) with ulcer and inflammation of left lower extremity (4) Venous hypertension, chronic, with ulcer and inflammation: CODE(S): I87.339 - Chronic venous hypertension (idiopathic) with ulcer and inflammation of unspecified lower extremity QUALIFIERS: Laterality: left Qualified Code(s): I87.332 - Chronic venous hypertension (idiopathic) with ulcer and inflammation of left lower extremity (5) Varicose veins with ulcer and inflammation: CODE(S): I83.209 - Varicose veins of unspecified lower extremity with both ulcer of unspecified site and inflammation; L97.909 - Non-pressure chronic ulcer of unspecified part of unspecified lower leg with unspecified severity (6) Chronic venous insufficiency: CODE(S): I87.2 - Venous insufficiency (chronic) (peripheral) (7) Left leg swelling: CODE(S): M79.89 - Other specified soft tissue disorders (8) Leg pain, left: CODE(S): M79.605 - Pain in left leg (9) Paroxysmal atrial fibrillation: CODE(S): I48.0 - Paroxysmal atrial fibrillation (10) Lipodermatosclerosis of left lower extremity: CODE(S): I83.12 - Varicose veins of left lower extremity with inflammation (11) Hyperpigmentation: CODE(S): L81.9 - Disorder of pigmentation, unspecified (12) Curry phlebectatica paraplantaris: CODE(S): R09.89 - Other specified symptoms and signs involving the circulatory and respiratory systems (13) History of ulcerative colitis: CODE(S): Z87.19 - Personal history of other diseases of the digestive system (14) Psoriasis: CODE(S): L40.9 - Psoriasis, unspecified PLAN: Plan This is a 67-year-old generally healthy white male who presented with severe lower extremity venous disease in his lower extremities. He presented with a venous ulceration over the left medial malleolus, which had been present for approximately 2 months. Despite treatment by the Dermatology service with Unna boots, triamcinolone 0.1% cream, and oral doxycycline, the ulceration persisted. The patient was referred for definitive management. The patient has in his possession graduated compression stockings of 20 to 30 mmHg, of knee-high length. These are to be worn on a daily basis. They are to be donned early each day, and doffed at bedtime. The patient is to continue sleeping on a flat surface at night. He has been encouraged to elevate his lower extremities during daytime hours as well, as much as possible. His legs are to be elevated to heart level, or higher. The patient has been urged to avoid prolonged idle sitting and standing. Activity has been encouraged. The patient's weight is optimal. A healthy, nutritional diet has been advised. We are to continue the use of collagen hydrogel topically to the ulceration, which will be applied by the patient on a daily basis. The patient has been instructed in the appropriate means of application. A venous duplex examination has been performed on September 26, 2022, the results of which reveal incompetence of the right great saphenous vein, right small saphenous vein, and right accessory saphenous vein in the proximal calf. Additionally, incompetence is noted in the left great saphenous vein, left small saphenous vein, and left accessory saphenous vein in the mid thigh. An incompetent rugby league footballer vein is noted in the thighs bilaterally. The implications of these findings have been discussed with patient in detail. We have discussed the potential role of endovenous laser ablation of the incompetent superficial veins in the left lower extremity. The indications and risks have been discussed in detail. The long-term benefits and expectations have also been discussed thoroughly. It is felt that the patient will derive long-term benefit from an endovenous ablation procedure, with the expectation that the procedure will likely reduce the incidence of venous ulcer recurrence.. After a lengthy discussion about the role of endovenous laser ablation of the incompetent superficial veins in the left lower extremity, the patient was given a brochure with information regarding the procedure. He has indicated his desire to proceed with preauthorization and scheduling of the procedure. The patient is to return in 2 weeks for reassessment. Total time: 22 minutes
== END 2022-11-25 23:59 | disposition home or self-care (01) ==
LOC: WC 11:00
PROVIDERS: PCP Family Medicine; Referring Provider Dermatology Pediatric Dermatology; Visit Provider Surgery
DX: I83.223 Varicose veins of left lower extremity with both ulcer of ankle and inflammation (principal); L97.322 Non-pressure chronic ulcer of left ankle with fat layer exposed; I48.0 Paroxysmal atrial fibrillation; L40.9 Psoriasis, unspecified; R09.89 Other specified symptoms and signs involving the circulatory and respiratory systems; L81.9 Disorder of pigmentation, unspecified
CPT/HCPCS: 11042

== ENCOUNTER 2022-12-19 11:00 | Outpatient (RCR) | payer MEDICARE, SELFPAY ==
[2022-11-26 00:14] VITALS: BP 104/44; PULSE 62; RESP 20; TEMP 36.2; BMI 20.4
[2022-11-28 11:15] VITALS: BP 113/69; PULSE 58; TEMP 36.2; BMI 20.4
--- NOTE | 2022-11-28 13:16 | HP.PCM_ITS ---
History of Present Illness Date of Service: 11/28/22 Chief Complaint: Venous stasis ulceration, left medial malleolus History of Wound: This is a 67-year-old male who presented with a venous stasis ulceration near the left medial malleolus. The venous ulceration had been present for approximately 2 months. He has had 2 prior ulcerations at this site in the past. He had recently been treated by [facility] by a variety of means, including the use of Unna boots and triamcinolone 0.1% cream topically. He had just completed a course of doxycycline 100 mg p.o. twice daily for 10 days. More recently, he had been wearing graduated compression stockings, knee-high length, of 20 to 30 mmHg compression, obtained at [facility] in [place], [place]. The stockings have been worn from morning until bedtime each day. The patient sleeps on a flat mattress at night. He is active. He is able to ambulate without limitation. 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 He denies a history of thrombophlebitis. He has undergone no prior vein procedures in the past. The patient is of normal body habitus, with a BMI of 20.4. Laboratory studies have been obtained as recently as July 12, 2022, with results as follows: White blood count 3.1, hemoglobin 14.1, hematocrit 44.2, platelets 206,000, sodium 140, chloride 104, potassium 3.9, BUN 13, creatinine 0.88, glucose 85, calcium 8.9, magnesium 2.7, total bilirubin 0.60, AST 22, ALT 29, alkaline phosphatase 59, total protein 7.5, albumin 4.0. The patient's history is negative for myocardial infarction, diabetes mellitus, cerebrovascular accident, thyroid disease, pulmonary disease, renal disease, hypertension, and hyperlipidemia. He has a history of atrial fibrillation, psoriasis, and ulcerative colitis. 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 Varicose veins with ulcer and inflammation Venous hypertension, chronic, with ulcer and inflammation Venous stasis ulcer Allergy/AdvReac Type Severity Reaction Status Date / Time No Known Allergies Allergy Verified 09/19/22 13:41 Surgical History History of appendectomy Social History Smoking Status: Never smoker alcohol intake: never substance use type: does not use caffeine: Yes Type: coffee Number of servings: 2 Vital Signs Vital Signs Vital Signs: 11/28/22 11:15 Temperature 97.2 F L Temperature Source Temporal Pulse Rate 58 L Blood Pressure 113/69 Blood Pressure Mean 83 Blood Pressure Source Monitor Blood Pressure Position Semi-Fowlers Blood Pressure Location Left Arm Oxygen Delivery Method Room Air Weight Weight: 150 lb 11.094 oz Body Mass Index (BMI) 20.4 Physical Exam Const alert, oriented x3, no apparent distress, average body habitus and well nourished Constitutional Narrative: The patient's BMI is 20.4. General Appearance: cooperative, comfortable, well kempt and well developed Orientation / Consciousness: awake, oriented to person, oriented to place and oriented to time Exam Limitations: no limitations HEENT normocephalic, head/scalp atraumatic and hearing grossly normal bilaterally Head and Scalp: normal to inspection, normocephalic and atraumatic Face and Sinus: normal facial exam Nose: external nose normal External Ear: external ears normal Eyes PERRL and EOMs intact bilaterally General Eye: normal appearance of both eyes Neck full ROM Resp normal respiratory effort, normal air movement, no retractions and no use of accessory muscles Effort and Inspection: able to speak in complete sentences Extremity no calf tenderness General Extremity: Negative for clubbing or cyanosis Skin Wound Narrative: Peripheral extremities are warm and well-perfused. Pedal pulses are palpable bilaterally. Scattered varicosities are noted bilaterally, with multiple large varicosities noted on the left upper medial calf. Severe curry phlebectatica is noted near the right medial malleolus. Curry phlebectatica, hyperpigmentation, and lipodermatosclerosis are noted near the left medial malleolus. Two small venous ulcerations are noted near the left medial malleolus. The ulcerations extend through the dermal layers and into the subcutaneous fat. They are small in size. A small amount of bioburden is present. Dimensions are documented elsewhere. There is no sign of infection or cellulitis. No significant swelling is noted in the patient's lower extremities. Neuro oriented x3, CN's II-XII intact bilaterally, moves all extremities and no focal motor deficits Sensorium / Orientation: awake, alert, oriented to person, oriented to place and oriented to time Psych Appearance: grossly normal and appropriate Attitude: calm Activity / Motor Behavior: appropriate eye contact Speech: normal speech Mood & Affect: euthymic mood Thought Process: normal thought process Thought Content: normal thought content Attention / Concentration: attention grossly intact Debridement Note Debridement Note Wound debrided: Venous ulceration, left medial malleolus; cluster Laterality: Left Type of Debridement: Excisional debridement Anesthesia Used: 5% Lidocaine Gel Depth: Down to and including healthy tissue and in the subcutaneous layer Percentage of wound debrided: 100 Instrument Used: 3mm curette Tissue Removed: Bioburden Severity: Fat Layer Exposed Amount of bleeding with debridement: Mild Bleeding Controlled with: Compression and gauze Patient tolerated procedure: Patient tolerated procedure well Post-Debridement Measurements and Additional Note: Post-Debridement Measurements/Treatment - Nurse 1 - General Ulcer Assessment Start: 11/28/22 11:10 Freq: Status: Active Protocol: ESPERANZA Activity Type Activity Date Activity User E-sign Co-sign Detail Recorded Client Recorded Date Recorded By Document 11/28/22 11:15 Desktop 11/28/22 11:18 11/28/22 11:15 - Today's Visit Information Type of service Follow-up Visit (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 Any new allergies or adverse reactions No Had a fall/change in ADL's that may No increase risk of falls Signs or symptoms of abuse and/or No neglect since last visit Have you been in the hospital since your No last visit? Has dressing in place as prescribed Yes Has compression in place as prescribed Yes Has offloadiing in place as prescribed No Experienced any changes in pain level or No management Left Footwear Regular Shoe Right Footwear Regular Shoe Pain Scale: 0-10 Numeric Is Patient Pain Free? Yes - Nurse 1 - General Ulcer Measurement Start: 11/28/22 11:10 Freq: Status: Active Protocol: Activity Type Activity Date Activity User E-sign Co-sign Detail Recorded Client Recorded Date Recorded By Document 11/28/22 11:15 GM Desktop 11/28/22 11:18 11/28/22 11:15 Wound Center Nurse 1 #1 L Med. Ankle Cluster -Tunneling No -Undermining/Tunneling No -Circular Undermining No -Exudate Amt Medium -Exudate Type Serous -Wound Margin Distinct, Outline Attached -Granulation Amt Small (1-33%) -Granulation Quality [place] -Structure Exposed N/A -Texture (Daisha-wound Skin Appearance) No Abnormality -Moisture (Daisha-wound Skin Appearance) Dry/Scaly -Temperature (Daisha-wound Skin No Abnormality Appearance) (Pt Warm) -Ulcer Cleansing Rinsed/ Irrigated with Saline -Foul Odor after Cleansing No -Anesthetic Used 5% Lidocaine Gel - Nurse 3 - General Ulcer D/C NN Start: 11/28/22 11:10 Freq: Status: Active Protocol: Activity Type Activity Date Activity User E-sign Co-sign Detail Recorded Client Recorded Date Recorded By Document 11/28/22 11:33 DL Desktop 11/28/22 11:35 DL 11/28/22 11:33 Wound Care Center Nurse 3 -Ulcer Cleansing Rinsed/ Irrigated with Saline -Foul Odor after Cleansing No -Primary Dressing Applied Mepilex Border -Other Dressing hydrogel -Mepilex Border 1 romel -Other stockings Treatment Response Procedure Tolerated Well Pain Scale: 0-10 Numeric Is Patient Pain Free? 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; L97.322 - Non-pressure chronic ulcer of left ankle with fat layer exposed (2) Venous stasis ulcer: CODE(S): I83.009 - Varicose veins of unspecified lower extremity with ulcer of unspecified site; L97.909 - Non-pressure chronic ulcer of unspecified part of unspecified lower leg with unspecified severity QUALIFIERS: Venous stasis ulcer site: ankle Varicose vein presence: with varicose veins Laterality: left Non-pressure ulcer stage: with fat layer exposed Qualified Code(s): I83.023 - Varicose veins of left lower extremity with ulcer of ankle; L97.322 - Non-pressure chronic ulcer of left ankle with fat layer exposed (3) Chronic venous hypertension (idiopathic) with ulcer and inflammation of left lower extremity: CODE(S): I87.332 - Chronic venous hypertension (idiopathic) with ulcer and inflammation of left lower extremity (4) Venous hypertension, chronic, with ulcer and inflammation: CODE(S): I87.339 - Chronic venous hypertension (idiopathic) with ulcer and inflammation of unspecified lower extremity QUALIFIERS: Laterality: left Qualified Code(s): I87.332 - Chronic venous hypertension (idiopathic) with ulcer and inflammation of left lower extremity (5) Varicose veins with ulcer and inflammation: CODE(S): I83.209 - Varicose veins of unspecified lower extremity with both ulcer of unspecified site and inflammation; L97.909 - Non-pressure chronic ulcer of unspecified part of unspecified lower leg with unspecified severity (6) Chronic venous insufficiency: CODE(S): I87.2 - Venous insufficiency (chronic) (peripheral) (7) Left leg swelling: CODE(S): M79.89 - Other specified soft tissue disorders (8) Leg pain, left: CODE(S): M79.605 - Pain in left leg (9) Paroxysmal atrial fibrillation: CODE(S): I48.0 - Paroxysmal atrial fibrillation (10) Lipodermatosclerosis of left lower extremity: CODE(S): I83.12 - Varicose veins of left lower extremity with inflammation (11) Hyperpigmentation: CODE(S): L81.9 - Disorder of pigmentation, unspecified (12) Curry phlebectatica paraplantaris: CODE(S): R09.89 - Other specified symptoms and signs involving the circulatory and respiratory systems (13) History of ulcerative colitis: CODE(S): Z87.19 - Personal history of other diseases of the digestive system (14) Psoriasis: CODE(S): L40.9 - Psoriasis, unspecified PLAN: Plan This is a 67-year-old generally healthy white male who presented with severe lower extremity venous disease in his lower extremities. He presented with a venous ulceration over the left medial malleolus, which had been present for approximately 2 months. Despite treatment by the Dermatology service with Unna boots, triamcinolone 0.1% cream, and oral doxycycline, the ulceration persisted. The patient was referred for definitive management. The patient has in his possession graduated compression stockings of 20 to 30 mmHg, of knee-high length. These are to be worn on a daily basis. They are to be donned early each day, and doffed at bedtime. The patient is to continue sleeping on a flat surface at night. He has been encouraged to elevate his lower extremities during daytime hours as well, as much as possible. His legs are to be elevated to heart level, or higher. The patient has been urged to avoid prolonged idle sitting and standing. Activity has been encouraged. The patient's weight is optimal. A healthy, nutritional diet has been advised. We are to continue the use of collagen hydrogel topically to the ulceration, which will be applied by the patient on a daily basis. The patient has been instructed in the appropriate means of application. A venous duplex examination has been performed on September 26, 2022, the results of which reveal incompetence of the right great saphenous vein, right small saphenous vein, and right accessory saphenous vein in the proximal calf. Additionally, incompetence is noted in the left great saphenous vein, left small saphenous vein, and left accessory saphenous vein in the mid thigh. An incompetent client administrator vein is noted in the thighs bilaterally. The implications of these findings have been discussed with patient in detail. We have discussed the potential role of endovenous laser ablation of the incompetent superficial veins in the left lower extremity. The indications and risks have been discussed in detail. The long-term benefits and expectations have also been discussed thoroughly. It is felt that the patient will derive long-term benefit from an endovenous ablation procedure, with the expectation that the procedure will likely reduce the incidence of venous ulcer recurrence.. After a lengthy discussion about the role of endovenous laser ablation of the incompetent superficial veins in the left lower extremity, the patient was given a brochure with information regarding the procedure. He continues to consider his options regarding procedural intervention. Until cooler weather prevails, he remains busy at his [employer] business and wishes to defer intervention until a later date. The patient is to return in 1 week for reassessment. Total time: 24 minutes
[2022-12-05 11:03] VITALS: BP 105/62; PULSE 61; TEMP 36.1; BMI 20.4
--- NOTE | 2022-12-05 11:38 | HP.PCM_ITS ---
History of Present Illness Date of Service: 12/05/22 Chief Complaint: Venous stasis ulceration, left medial malleolus History of Wound: This is a 67-year-old male who presented with a venous stasis ulceration near the left medial malleolus. The venous ulceration had been present for approximately 2 months. He has had 2 prior ulcerations at this site in the past. He had recently been treated by [facility] by a variety of means, including the use of Unna boots and triamcinolone 0.1% cream topically. He had just completed a course of doxycycline 100 mg p.o. twice daily for 10 days. More recently, he had been wearing graduated compression stockings, knee-high length, of 20 to 30 mmHg compression, obtained at [facility] in [place], [place]. The stockings have been worn from morning until bedtime each day. The patient sleeps on a flat mattress at night. He is active. He is able to ambulate without limitation. 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 He denies a history of thrombophlebitis. He has undergone no prior vein procedures in the past. The patient is of normal body habitus, with a BMI of 20.4. Laboratory studies have been obtained as recently as July 12, 2022, with results as follows: White blood count 3.1, hemoglobin 14.1, hematocrit 44.2, platelets 206,000, sodium 140, chloride 104, potassium 3.9, BUN 13, creatinine 0.88, glucose 85, calcium 8.9, magnesium 2.7, total bilirubin 0.60, AST 22, ALT 29, alkaline phosphatase 59, total protein 7.5, albumin 4.0. The patient's history is negative for myocardial infarction, diabetes mellitus, cerebrovascular accident, thyroid disease, pulmonary disease, renal disease, hypertension, and hyperlipidemia. He has a history of atrial fibrillation, psoriasis, and ulcerative colitis. 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 Varicose veins with ulcer and inflammation Venous hypertension, chronic, with ulcer and inflammation Venous stasis ulcer Allergy/AdvReac Type Severity Reaction Status Date / Time No Known Allergies Allergy Verified 09/19/22 13:41 Surgical History History of appendectomy Social History Smoking Status: Never smoker alcohol intake: never substance use type: does not use caffeine: Yes Type: coffee Number of servings: 2 Vital Signs Vital Signs Vital Signs: 12/05/22 11:03 Temperature 96.9 F L Temperature Source Temporal Pulse Rate 61 Blood Pressure 105/62 Blood Pressure Mean 76 Blood Pressure Source Monitor Blood Pressure Position Sitting Blood Pressure Location Left Arm Weight Weight: 150 lb 11.094 oz Body Mass Index (BMI) 20.4 Physical Exam Const alert, oriented x3, no apparent distress, average body habitus, no limitations and well nourished Constitutional Narrative: The patient's BMI is 20.4. General Appearance: cooperative, comfortable, well kempt and well developed Orientation / Consciousness: awake, oriented to person, oriented to place and oriented to time Exam Limitations: no limitations HEENT normocephalic, head/scalp atraumatic and hearing grossly normal bilaterally Head and Scalp: normal to inspection, normocephalic and atraumatic Face and Sinus: normal facial exam Nose: external nose normal External Ear: external ears normal Eyes PERRL and EOMs intact bilaterally General Eye: normal appearance of both eyes Neck full ROM Resp normal respiratory effort, normal air movement, no retractions and no use of accessory muscles Effort and Inspection: able to speak in complete sentences Extremity no calf tenderness General Extremity: Negative for clubbing or cyanosis Skin Wound Narrative: Peripheral extremities are warm and well-perfused. Pedal pulses are palpable bilaterally. Scattered varicosities are noted bilaterally, with multiple large varicosities noted on the left upper medial calf. Severe curry phlebectatica is noted near the right medial malleolus. Curry phlebectatica, hyperpigmentation, and lipodermatosclerosis are noted near the left medial malleolus. Two small venous ulcerations are noted near the left medial malleolus. The ulcerations extend through the dermal layers and into the subcutaneous fat. They are small in size. A small amount of bioburden is present. Dimensions are documented elsewhere. There is no sign of infection or cellulitis. No significant swelling is noted in the patient's lower extremities. Neuro oriented x3, CN's II-XII intact bilaterally, moves all extremities and no focal motor deficits Sensorium / Orientation: awake, alert, oriented to person, oriented to place and oriented to time Psych Appearance: grossly normal and appropriate Attitude: calm Activity / Motor Behavior: appropriate eye contact Speech: normal speech Mood & Affect: euthymic mood Thought Process: normal thought process Thought Content: normal thought content Attention / Concentration: attention grossly intact Debridement Note Debridement Note Wound debrided: Venous ulceration, left medial malleolus; cluster Laterality: Left Type of Debridement: Excisional debridement Anesthesia Used: 5% Lidocaine Gel Depth: Down to and including healthy tissue and in the subcutaneous layer Percentage of wound debrided: 100 Instrument Used: 3mm curette Tissue Removed: Bioburden Severity: Fat Layer Exposed Amount of bleeding with debridement: Mild Bleeding Controlled with: Compression and gauze Patient tolerated procedure: Patient tolerated procedure well Post-Debridement Measurements and Additional Note: Post-Debridement Measurements/Treatment - Nurse 1 - General Ulcer Assessment Start: 11/28/22 11:10 Freq: Status: Active Protocol: ESPERANZA Activity Type Activity Date Activity User E-sign Co-sign Detail Recorded Client Recorded Date Recorded By Document 11/28/22 11:15 Desktop 11/28/22 11:18 Document 12/05/22 11:03 [facility] Desktop 12/05/22 11:10 [facility] 11/28/22 12/05/22 11:15 11:03 - Today's Visit Information Type of service Follow-up Visit Follow-up Visit (Physician/CUPOLA OPERATOR (Physician/CUPOLA OPERATOR ) ) Arrival Mode Ambulatory Ambulatory Transfer Assistance None Patient Identification Verified (Name & Yes Yes ) Patient Requires Transmission-Based No Precautions Safety Precautions NA Height and Weight Body Mass Index (BMI) 20.4 20.4 BMI Classification Normal Normal Vital Signs Temperature (97.8 F-99.1 F) 97.2 F L 96.9 F L Temperature Source Temporal Temporal Pulse Rate (60-100) 58 L 61 Pulse Location Monitor Monitor Oxygen Delivery Method Room Air Blood Pressure (90/60-120/80) 113/69 105/62 Blood Pressure Mean 83 76 Source Monitor Monitor Position Semi-Fowlers Sitting Blood Pressure Location Left Arm Left Arm History Since Last Visit- (Skip if this is Patient's initial visit) Have you changed medications since your No No last visit? Any new allergies or adverse reactions No No Had a fall/change in ADL's that may No No increase risk of falls Signs or symptoms of abuse and/or No No neglect since last visit Have you been in the hospital since your No No last visit? Has dressing in place as prescribed Yes Yes Has compression in place as prescribed Yes Yes Has offloadiing in place as prescribed No N/A Experienced any changes in pain level or No No management Left Footwear Regular Shoe Regular Shoe Right Footwear Regular Shoe Regular Shoe Pain Scale: 0-10 Numeric Is Patient Pain Free? Yes Yes WC - Nurse 1 - General Ulcer Measurement Start: 11/28/22 11:10 Freq: Status: Active Protocol: Activity Type Activity Date Activity User E-sign Co-sign Detail Recorded Client Recorded Date Recorded By Document 11/28/22 11:15 Desktop 11/28/22 11:18 GM Document 12/05/22 11:03 [facility] Desktop 12/05/22 11:10 [facility] 11/28/22 12/05/22 11:15 11:03 Wound Center Nurse 1 #1 L Med. Ankle Cluster -Combined with other wound No -Current Size (cm) - Length 4.8 -Current Size (cm) - Width 0.5 -Current Size (cm) - Depth 0.1 -Total Square Cm 2.40 -Date of Last Picture (Recall this 12/05/22 field) -Photo Taken Yes -Epithelialization None Present -Tunneling No No -Undermining/Tunneling No No -Circular Undermining No No -Exudate Amt Medium Small -Exudate Type Serous Serosanguineous -Wound Margin Distinct, Distinct, Outline Outline Attached Attached -Granulation Amt Small (1-33%) None Present (0 %) -Granulation Quality Clyde -Slough/Fibrin Yes -Necrosis Amt Large (67-100%) -Necrotic Tissue Type Eschar -Structure Exposed N/A -Texture (Daisha-wound Skin Appearance) No Abnormality Assessed, Scarring -Moisture (Daisha-wound Skin Appearance) Dry/Scaly Assessed -Color (Daisha-wound Skin Appearance) Assessed, Hemosiderin Staining -Temperature (Daisha-wound Skin No Abnormality No Abnormality Appearance) (Pt Warm) (Pt Warm) -Tenderness on Palpation (Daisha-wound No Skin Appearance) -Ulcer Cleansing Rinsed/ Rinsed/ Irrigated with Irrigated with Saline Saline -Foul Odor after Cleansing No No -Anesthetic Used 5% Lidocaine 5% Lidocaine Gel Gel -Wound Comment(s) TWO SMALL SCABBED AREAS Left Calf (cm) 35.8 Left Ankle (cm) 20.8 WC - Nurse 2 - General Ulcer CM Notes Start: 11/28/22 11:10 Freq: Status: Active Protocol: Activity Type Activity Date Activity User E-sign Co-sign Detail Recorded Client Recorded Date Recorded By Document 11/28/22 13:30 PL [id number] 11/28/22 13:31 PL 11/28/22 13:30 Wound Center Nurse 2 #1 L Med. Ankle Cluster -Time 11:26 -Correct Patient Yes -Correct Side, Site, Position Yes -Correct Procedure Yes -Procedure Performed Yes -Type of Procedure Debridement -Clinical Debridement Subcutaneous -Tissue Removed Dermis, Subcutaneous -Post Debridement (cm) - Length 0.4 -Post Debridement (cm) - Width 0.4 -Post Debridement (cm) - Depth 0.1 -Total Square (Post) (cm) 0.16 -Area of Debridement (cm) - Length 0.4 -Area of Debridement (cm) - Width 0.4 -Total Square (Area) (cm) 0.16 -Tunneling No -Undermining/Tunneling No -Circular Undermining No -Wound/Ulcer Outcome Not Healed -Ulcer Cleansing Rinsed/ Irrigated with Saline -Foul Odor after Cleansing No -Bioengineered Tissue No -Bleeding Controlled with Pressure -Treatment Response Procedure Tolerated Well -Debridement - Subq, 1st 20sq cm Yes Pain Scale: 0-10 Numeric Is Patient Pain Free? Yes LILY - Nurse 3 - General Ulcer D/C NN Start: 11/28/22 11:10 Freq: Status: Active Protocol: Activity Type Activity Date Activity User E-sign Co-sign Detail Recorded Client Recorded Date Recorded By Document 11/28/22 11:33 DL Desktop 11/28/22 11:35 DL 11/28/22 11:33 Wound Care Center Nurse 3 #1 L Med. Ankle Cluster -Ulcer Cleansing Rinsed/ Irrigated with Saline -Foul Odor after Cleansing No -Primary Dressing Applied Mepilex Border -Other Dressing hydrogel -Mepilex Border 1 romel -Other stockings Treatment Response Procedure Tolerated Well Pain Scale: 0-10 Numeric Is Patient Pain Free? 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; L97.322 - Non-pressure chronic ulcer of left ankle with fat layer exposed (2) Venous stasis ulcer: CODE(S): I83.009 - Varicose veins of unspecified lower extremity with ulcer of unspecified site; L97.909 - Non-pressure chronic ulcer of unspecified part of unspecified lower leg with unspecified severity QUALIFIERS: Venous stasis ulcer site: ankle Varicose vein presence: with varicose veins Laterality: left Non-pressure ulcer stage: with fat layer exposed Qualified Code(s): I83.023 - Varicose veins of left lower extremity with ulcer of ankle; L97.322 - Non-pressure chronic ulcer of left ankle with fat layer exposed (3) Chronic venous hypertension (idiopathic) with ulcer and inflammation of left lower extremity: CODE(S): I87.332 - Chronic venous hypertension (idiopathic) with ulcer and inflammation of left lower extremity (4) Venous hypertension, chronic, with ulcer and inflammation: CODE(S): I87.339 - Chronic venous hypertension (idiopathic) with ulcer and inflammation of unspecified lower extremity QUALIFIERS: Laterality: left Qualified Code(s): I87.332 - Chronic venous hypertension (idiopathic) with ulcer and inflammation of left lower extremity (5) Varicose veins with ulcer and inflammation: CODE(S): I83.209 - Varicose veins of unspecified lower extremity with both ulcer of unspecified site and inflammation; L97.909 - Non-pressure chronic ulcer of unspecified part of unspecified lower leg with unspecified severity (6) Chronic venous insufficiency: CODE(S): I87.2 - Venous insufficiency (chronic) (peripheral) (7) Left leg swelling: CODE(S): M79.89 - Other specified soft tissue disorders (8) Leg pain, left: CODE(S): M79.605 - Pain in left leg (9) Paroxysmal atrial fibrillation: CODE(S): I48.0 - Paroxysmal atrial fibrillation (10) Lipodermatosclerosis of left lower extremity: CODE(S): I83.12 - Varicose veins of left lower extremity with inflammation (11) Hyperpigmentation: CODE(S): L81.9 - Disorder of pigmentation, unspecified (12) Curry phlebectatica paraplantaris: CODE(S): R09.89 - Other specified symptoms and signs involving the circulatory and respiratory systems (13) History of ulcerative colitis: CODE(S): Z87.19 - Personal history of other diseases of the digestive syst em (14) Psoriasis: CODE(S): L40.9 - Psoriasis, unspecified PLAN: Plan This is a 67-year-old generally healthy white male who presented with severe lower extremity venous disease in his lower extremities. He presented with a venous ulceration over the left medial malleolus, which had been present for approximately 2 months. Despite treatment by the Dermatology service with Unna boots, triamcinolone 0.1% cream, and oral doxycycline, the ulceration persisted. The patient was referred for definitive management. The patient has in his pos session graduated compression stockings of 20 to 30 mmHg, of knee-high length. These are to be worn on a daily basis. They are to be donned early each day, and doffed at bedtime. The patient is to continue sleeping on a flat surface at night. He has been encouraged to elevate his lower extremities during daytime hours as well, as much as possible. His legs are to be elevated to heart level, or higher. The patient has been urged to avoid prolonged idle sitting and standing. Activity has been encouraged. The patient's weight is optimal. A healthy, nutritional diet has been advised. We are to continue the use of collagen hydrogel topically to the ulceration, which will be applied by the patient on a daily basis. The patient has been instructed in the appropriate means of application. A venous duplex examination has been performed on September 26, 2022, the results of which reveal incompetence of the right great saphenous vein, right small saphenous vein, and right accessory saphenous vein in the proximal calf. Additionally, incompetence is noted in the left great saphenous vein, left small saphenous vein, and left accessory saphenous vein in the mid thigh. 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 The implications of these findings have been discussed with patient in detail. We have discussed the potential role of endovenous laser ablation of the incompetent superficial veins in the left lower extremity. The indications and risks have been discussed in detail. The long-term benefits and expectations have also been discussed thoroughly. It is felt that the patient will derive long-term benefit from an endovenous ablation procedure, with the expectation that the procedure will likely reduce the incidence of venous ulcer recurrence.. After a lengthy discussion about the role of endovenous laser ablation of the incompetent superficial veins in the left lower extremity, the patient was given a brochure with information regarding the procedure. He continues to consider his options regarding procedural intervention. Until cooler weather prevails, he remains busy at his [employer] business and wishes to defer intervention until a later date. The patient is to return in 2 weeks for reassessment. Total time: 22 minutes
[2022-12-19 11:11] VITALS: BP 120/69; PULSE 79; RESP 18; TEMP 36.2; BMI 20.4
--- NOTE | 2022-12-19 11:33 | HP.PCM_ITS ---
History of Present Illness Date of Service: 12/19/22 Chief Complaint: Venous stasis ulceration, left medial malleolus History of Wound: This is a 67-year-old male who presented with a venous stasis ulceration near the left medial malleolus. The venous ulceration had been present for approximately 2 months. He has had 2 prior ulcerations at this site in the past. He had recently been treated by [facility] by a variety of means, including the use of Unna boots and triamcinolone 0.1% cream topically. He had just completed a course of doxycycline 100 mg p.o. twice daily for 10 days. More recently, he had been wearing graduated compression stockings, knee-high length, of 20 to 30 mmHg compression, obtained at [facility] in [place], [place]. The stockings have been worn from morning until bedtime each day. The patient sleeps on a flat mattress at night. He is active. He is able to ambulate without limitation. 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 He denies a history of thrombophlebitis. He has undergone no prior vein procedures in the past. The patient is of normal body habitus, with a BMI of 20.4. Laboratory studies have been obtained as recently as July 12, 2022, with results as follows: White blood count 3.1, hemoglobin 14.1, hematocrit 44.2, platelets 206,000, sodium 140, chloride 104, potassium 3.9, BUN 13, creatinine 0.88, glucose 85, calcium 8.9, magnesium 2.7, total bilirubin 0.60, AST 22, ALT 29, alkaline phosphatase 59, total protein 7.5, albumin 4.0. The patient's history is negative for myocardial infarction, diabetes mellitus, cerebrovascular accident, thyroid disease, pulmonary disease, renal disease, hypertension, and hyperlipidemia. He has a history of atrial fibrillation, psoriasis, and ulcerative colitis. 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 Varicose veins with ulcer and inflammation Venous hypertension, chronic, with ulcer and inflammation Venous stasis ulcer Allergy/AdvReac Type Severity Reaction Status Date / Time No Known Allergies Allergy Verified 09/19/22 13:41 Surgical History History of appendectomy Social History Smoking Status: Never smoker alcohol intake: never substance use type: does not use caffeine: Yes Type: coffee Number of servings: 2 Vital Signs Vital Signs Vital Signs: 12/19/22 11:11 Temperature 97.2 F L Temperature Source Temporal Pulse Rate 79 Respiratory Rate 18 Blood Pressure 120/69 Blood Pressure Mean 86 Blood Pressure Source Monitor Blood Pressure Position Semi-Fowlers Blood Pressure Location Left Arm Weight Weight: 150 lb 11.094 oz Body Mass Index (BMI) 20.4 Physical Exam Const alert, oriented x3, no apparent distress, average body habitus, no limitations and well nourished Constitutional Narrative: The patient's BMI is 20.4. General Appearance: cooperative, comfortable, well kempt and well developed Orientation / Consciousness: awake, oriented to person, oriented to place and oriented to time Exam Limitations: no limitations HEENT normocephalic, head/scalp atraumatic and hearing grossly normal bilaterally Head and Scalp: normal to inspection, normocephalic and atraumatic Face and Sinus: normal facial exam Nose: external nose normal External Ear: external ears normal Eyes PERRL and EOMs intact bilaterally General Eye: normal appearance of both eyes Neck full ROM Resp normal respiratory effort, normal air movement, no retractions and no use of accessory muscles Effort and Inspection: able to speak in complete sentences Extremity no calf tenderness General Extremity: Negative for clubbing or cyanosis Skin Wound Narrative: Peripheral extremities are warm and well-perfused. Pedal pulses are palpable bilaterally. Scattered varicosities are noted bilaterally, with multiple large varicosities noted on the left upper medial calf. Severe curry phlebectatica is noted near the right medial malleolus. Curry phlebectatica, hyperpigmentation, and lipodermatosclerosis are noted near the left medial malleolus. One very small ulceration is noted near the left medial malleolus. The ulceration extends through the dermal layers and into the subcutaneous fat. A small amount of bioburden is present. Dimensions are documented elsewhere. There is no sign of infection or cellulitis. No significant swelling is noted in the patient's lower extremities. Neuro oriented x3, CN's II-XII intact bilaterally, moves all extremities and no focal motor deficits Sensorium / Orientation: awake, alert, oriented to person, oriented to place and oriented to time Psych Appearance: grossly normal and appropriate Attitude: calm Activity / Motor Behavior: appropriate eye contact Speech: normal speech Mood & Affect: euthymic mood Thought Process: normal thought process Thought Content: normal thought content Attention / Concentration: attention grossly intact Debridement Note Debridement Note Wound debrided: Venous ulceration, left medial malleolus; cluster Laterality: Left Type of Debridement: Excisional debridement Anesthesia Used: 5% Lidocaine Gel Depth: Down to and including healthy tissue and in the subcutaneous layer Percentage of wound debrided: 100 Instrument Used: 3mm curette Tissue Removed: Bioburden Severity: Fat Layer Exposed Amount of bleeding with debridement: Mild Bleeding Controlled with: Compression and gauze Patient tolerated procedure: Patient tolerated procedure well Post-Debridement Measurements and Additional Note: Post-Debridement Measurements/Treatment - Nurse 1 - General Ulcer Assessment Start: 11/28/22 11:10 Freq: Status: Active Protocol: ESPERANZA Activity Type Activity Date Activity User E-sign Co-sign Detail Recorded Client Recorded Date Recorded By Document 11/28/22 11:15 Desktop 11/28/22 11:18 Document 12/05/22 11:03 [facility] Desktop 12/05/22 11:10 [facility] Document 12/19/22 11:11 Desktop 12/19/22 11:13 RB 11/28/22 12/05/22 12/19/22 11:15 11:03 11:11 - Today's Visit Information Type of service Follow-up Visit Follow-up Visit Follow-up Visit (Physician/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 (Physician/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 (Physician/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 ) ) ) Arrival Mode Ambulatory Ambulatory Ambulatory Transfer Assistance None None Patient Identification Verified (Name & Yes Yes Yes ) Patient Requires Transmission-Based No No Precautions Safety Precautions NA Height and Weight Body Mass Index (BMI) 20.4 20.4 20.4 BMI Classification Normal Normal Normal Vital Signs Temperature (97.8 F-99.1 F) 97.2 F L 96.9 F L 97.2 F L Temperature Source Temporal Temporal Temporal Pulse Rate (60-100) 58 L 61 79 Pulse Location Monitor Monitor Monitor Respiratory Rate (12-18) 18 Respiratory rate source Observation Oxygen Delivery Method Room Air Blood Pressure (90/60-120/80) 113/69 105/62 120/69 Blood Pressure Mean 83 76 86 Source Monitor Monitor Monitor Position Semi-Fowlers Sitting Semi-Fowlers Blood Pressure Location Left Arm Left Arm Left Arm History Since Last Visit- (Skip if this is Patient's initial visit) Have you changed medications since your No No No last visit? Any new allergies or adverse reactions No No No Had a fall/change in ADL's that may No No No increase risk of falls Signs or symptoms of abuse and/or No No No neglect since last visit Have you been in the hospital since your No No No last visit? Has dressing in place as prescribed Yes Yes Yes Has compression in place as prescribed Yes Yes Yes Has offloadiing in place as prescribed No N/A No Experienced any changes in pain level or No No No management Left Footwear Regular Shoe Regular Shoe Right Footwear Regular Shoe Regular Shoe Pain Scale: 0-10 Numeric Is Patient Pain Free? Yes Yes Yes WC - Nurse 1 - General Ulcer Measurement Start: 11/28/22 11:10 Freq: Status: Active Protocol: Activity Type Activity Date Activity User E-sign Co-sign Detail Recorded Client Recorded Date Recorded By Document 11/28/22 11:15 Desktop 11/28/22 11:18 Document 12/05/22 11:03 [facility] Desktop 12/05/22 11:10 [facility] Document 12/19/22 11:11 RB Desktop 12/19/22 11:13 RB 11/28/22 12/05/22 12/19/22 11:15 11:03 11:11 Wound Center Nurse 1 #1 L Med. Ankle Cluster -Combined with other wound No No -Current Size (cm) - Length 4.8 0.1 -Current Size (cm) - Width 0.5 0.1 -Current Size (cm) - Depth 0.1 0.1 -Total Square Cm 2.40 0.01 -Date of Last Picture (Recall this 12/05/22 field) -Photo Taken Yes -Epithelialization None Present -Tunneling No No No -Undermining/Tunneling No No No -Circular Undermining No No No -Exudate Amt Medium Small Small -Exudate Type Serous Serosanguineous Serosanguineous -Wound Margin Distinct, Distinct, Distinct, Outline Outline Outline Attached Attached Attached -Granulation Amt Small (1-33%) None Present (0 Small (1-33%) %) -Granulation Quality [place] -Slough/Fibrin Yes Yes -Necrosis Amt Large (67-100%) Large (67-100%) -Necrotic Tissue Type Eschar Adherent Slough -Structure Exposed N/A N/A -Texture (Daisha-wound Skin Appearance) No Abnormality Assessed, Assessed Scarring -Moisture (Daisha-wound Skin Appearance) Dry/Scaly Assessed Assessed -Color (Daisha-wound Skin Appearance) Assessed, Assessed Hemosiderin Staining -Temperature (Daisha-wound Skin No Abnormality No Abnormality No Abnormality Appearance) (Pt Warm) (Pt Warm) (Pt Warm) -Tenderness on Palpation (Daisha-wound No No Skin Appearance) -Ulcer Cleansing Rinsed/ Rinsed/ Wound Cleanser Irrigated with Irrigated with Saline Saline -Foul Odor after Cleansing No No No -Anesthetic Used 5% Lidocaine 5% Lidocaine 5% Lidocaine Gel Gel Gel -Wound Comment(s) TWO SMALL SCABBED AREAS Lower Limb Edema Present Yes Left Calf (cm) 35.8 35 Left Ankle (cm) 20.8 21.5 WC - Nurse 2 - General Ulcer CM Notes Start: 11/28/22 11:10 Freq: Status: Active Protocol: Activity Type Activity Date Activity User E-sign Co-sign Detail Recorded Client Recorded Date Recorded By Document 11/28/22 13:30 PL [id number] 11/28/22 13:31 PL Document 12/05/22 13:23 PL [id number] 12/05/22 13:24 PL 11/28/22 12/05/22 13:30 13:23 Wound Center Nurse 2 #1 L Med. Ankle Cluster -Time 11:26 11:32 -Correct Patient Yes Yes -Correct Side, Site, Position Yes Yes -Correct Procedure Yes Yes -Procedure Performed Yes Yes -Type of Procedure Debridement Debridement -Clinical Debridement Subcutaneous Subcutaneous -Tissue Removed Dermis, Subcutaneous Subcutaneous -Post Debridement (cm) - Length 0.4 4.8 -Post Debridement (cm) - Width 0.4 0.5 -Post Debridement (cm) - Depth 0.1 0.1 -Total Square (Post) (cm) 0.16 2.40 -Area of Debridement (cm) - Length 0.4 4.8 -Area of Debridement (cm) - Width 0.4 0.5 -Total Square (Area) (cm) 0.16 2.40 -Tunneling No No -Undermining/Tunneling No No -Circular Undermining No No -Wound/Ulcer Outcome Not Healed Not Healed -Ulcer Cleansing Rinsed/ Rinsed/ Irrigated with Irrigated with Saline Saline -Foul Odor after Cleansing No No -Bioengineered Tissue No No -Bleeding Controlled with Pressure Pressure -Treatment Response Procedure Procedure Tolerated Well Tolerated Well -Debridement - Subq, 1st 20sq cm Yes Yes Pain Scale: 0-10 Numeric Is Patient Pain Free? Yes Yes - Nurse 3 - General Ulcer D/C NN Start: 11/28/22 11:10 Freq: Status: Active Protocol: Activity Type Activity Date Activity User E-sign Co-sign Detail Recorded Client Recorded Date Recorded By Document 11/28/22 11:33 DL Desktop 11/28/22 11:35 DL Document 12/05/22 11:42 BM Desktop 12/05/22 11:42 BMF 11/28/22 12/05/22 11:33 11:42 Wound Care Center Nurse 3 #1 L Med. Ankle Cluster -Ulcer Cleansing Rinsed/ Rinsed/ Irrigated with Irrigated with Saline Saline -Foul Odor after Cleansing No No -Primary Dressing Applied Mepilex Border Mepilex Border -Other Dressing hydrogel HYDROGEL -Mepilex Border 1 1 romel -Other stockings PT APPLIES OWN COMPRESSION STOCKINGS Treatment Response Procedure Procedure Tolerated Well Tolerated Well Pain Scale: 0-10 Numeric Is Patient Pain Free? 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; L97.322 - Non-pressure chronic ulcer of left ankle with fat layer exposed (2) Venous stasis ulcer: CODE(S): I83.009 - Varicose veins of unspecified lower extremity with ulcer of unspecified site; L97.909 - Non-pressure chronic ulcer of unspecified part of unspecified lower leg with unspecified severity QUALIFIERS: Venous stasis ulcer site: ankle Varicose vein presence: with varicose veins Laterality: left Non-pressure ulcer stage: with fat layer exposed Qualified Code(s): I83.023 - Varicose veins of left lower extremity with ulcer of ankle; L97.322 - Non-pressure chronic ulcer of left ankle with fat layer exposed (3) Chronic venous hypertension (idiopathic) with ulcer and inflammation of left lower extremity: CODE(S): I87.332 - Chronic venous hypertension (idiopathic) with ulcer and inflammation of left lower extremity (4) Venous hypertension, chronic, with ulcer and inflammation: CODE(S): I87.339 - Chronic venous hypertension (idiopathic) with ulcer and inflammation of unspecified lower extremity QUALIFIERS: Laterality: left Qualified Code(s): I87.332 - Chronic venous hypertension (idiopathic) with ulcer and inflammation of left lower extremity (5) Varicose veins with ulcer and inflammation: CODE(S): I83.209 - Varicose veins of unspecified lower extremity with both ulcer of unspecified site and inflammation; L97.909 - Non-pressure chronic ulcer of unspecified part of unspecified lower leg with unspecified severity (6) Chronic venous insufficiency: CODE(S): I87.2 - Venous insufficiency (chronic) (peripheral) (7) Left leg swelling: CODE(S): M79.89 - Other specified soft tissue disorders (8) Leg pain, left: CODE(S): M79.605 - Pain in left leg (9) Paroxysmal atrial fibrillation: CODE(S): I48.0 - Paroxysmal atrial fibrillation (10) Lipodermatosclerosis of left lower extremity: CODE(S): I83.12 - Varicose veins of left lower extremity with inflammation (11) Hyperpigmentation: CODE(S): L81.9 - Disorder of pigmentation, unspecified (12) Curry phlebectatica paraplantaris: CODE(S): R09.89 - Other specified symptoms and signs involving the circulatory and respiratory systems (13) History of ulcerative colitis: CODE(S): Z87.19 - Personal history of other diseases of the digestive system (14) Psoriasis: CODE(S): L40.9 - Psoriasis, unspecified PLAN: Plan This is a 67-year-old generally healthy white male who presented with severe lower extremity venous disease in his lower extremities. He presented with a venous ulceration over the left medial malleolus, which had been present for approximately 2 months. Despite treatment by the Dermatology service with Unna boots, triamcinolone 0.1% cream, and oral doxycycline, the ulceration persisted. The patient was referred for definitive management. The patient has in his possession graduated compression stockings of 20 to 30 mmHg, of knee-high length. These are to be worn on a daily basis. They are to be donned early each day, and doffed at bedtime. The patient is to continue sleeping on a flat surface at night. He has been encouraged to elevate his lower extremities during daytime hours as well, as much as possible. His legs are to be elevated to heart level, or higher. The patient has been urged to avoid prolonged idle sitting and standing. Activity has been encouraged. The patient's weight is optimal. A healthy, nutritional diet has been advised. We are to continue the use of collagen hydrogel topically to the ulceration, which will be applied by the patient on a daily basis. The patient has been instructed in the appropriate means of application. A venous duplex examination has been performed on September 26, 2022, the results of which reveal incompetence of the right great saphenous vein, right small saphenous vein, and right accessory saphenous vein in the proximal calf. Additionally, incompetence is noted in the left great saphenous vein, left small saphenous vein, and left accessory saphenous vein in the mid thigh. An incompetent registration representative vein is noted in the thighs bilaterally. The implications of these findings have been discussed with patient in detail. We have discussed the potential role of endovenous laser ablation of the incompetent superficial veins in the left lower extremity. The indications and risks have been discussed in detail. The long-term benefits and expectations have also been discussed thoroughly. It is felt that the patient will derive long-term benefit from an endovenous ablation procedure, with the expectation that the procedure will likely reduce the incidence of venous ulcer recurrence.. After a lengthy discussion about the role of endovenous laser ablation of the incompetent superficial veins in the left lower extremity, the patient was given a brochure with information regarding the procedure. He continues to consider his options regarding procedural intervention. Until cooler weather prevails, he remains busy at his [employer] business and wishes to defer intervention until a later date. The patient is to return in 3 weeks for reassessment. Total time: 24 minutes
== END 2022-12-26 23:59 | disposition home or self-care (01) ==
LOC: WC 11:00
PROVIDERS: PCP Family Medicine; Referring Provider Dermatology Pediatric Dermatology; Visit Provider Surgery
DX: I83.223 Varicose veins of left lower extremity with both ulcer of ankle and inflammation (principal); L97.322 Non-pressure chronic ulcer of left ankle with fat layer exposed; I48.0 Paroxysmal atrial fibrillation; M79.605 Pain in left leg; L40.9 Psoriasis, unspecified; M79.89 Other specified soft tissue disorders; R09.89 Other specified symptoms and signs involving the circulatory and respiratory systems; L81.9 Disorder of pigmentation, unspecified
CPT/HCPCS: 11042

== ENCOUNTER → 2024-11-11 | Outpatient (CLI) | payer MEDICARE, SELFPAY ==
--- NOTE | 2024-11-11 11:04 | VDLE_ITS ---
Reason For Study Reason For Study: BLE Swelling RIGHT LEFT CFV is compressible, phasic, and INCOMPETENT for CFV is compressible, phasic, and INCOMPETENT for greater than 1.0 second. greater than 1.0 second. FV is compressible, spontaneous, phasic, competent FV is compressible, spontaneous, phasic, competent and demonstrates normal augmentation. and demonstrates normal augmentation. POP V is compressible, spontaneous, phasic, competent POP V is compressible, spontaneous, phasic, competent and demonstrates normal augmentation. and demonstrates normal augmentation. T/P Trunk is compressible. T/P Trunk is compressible. PTV is compressible. PTV is compressible. RT PerV is compressible. LT PerV is compressible. SFJ is INCOMPETENT and measures 0.63 cm. SFJ is competent and measures 0.61 cm. GSV proximal thigh measures 0.31 x 0.43 cm. GSV proximal thigh measures 0.35 x 0.40 cm. GSV at knee measures 0.60 x 0.71 cm. GSV at knee measures 0.56 x 0.62 cm. GSV INCOMPETENT throughout for greater than 0.5 GSV INCOMPETENT throughout for greater than 0.5 seconds. seconds. Perforating Vessel Mid Thigh is INCOMPETENT for Perforating Vessel Mid Thigh is INCOMPETENT for greater than 0.5 seconds and measures 0.37 cm greater than 0.5 seconds and measures 0.47 cm Perforating Vessel KNEE is INCOMPETENT for greater Perforating Vessel Mid calf off SSV branch is than 0.5 seconds and measures 0.22 cm INCOMPETENT for greater than 0.5 seconds and measures Perforating Vessel mid calf is INCOMPETENT for 0.34 cm greater than 0.5 seconds and measures 0.29 cm. Perforating Vessel Distal CaLF is INCOMPETENT for SSV at junction is INCOMPETENT for greater than 0.5 greater than 0.5 seconds and measures 0.49 cm seconds and measures 0.36 cm. Large Varicose vein cluster moving between fascia and SSV mid calf is competent and measures 0.37 x 0.44 superficial layer noted at mid calf. cm. ASV mid thigh is INCOMPETENT for greater than 0.5 Procedure seconds and measures 0.80 cm. Exam performed in department. SSV at junction is competent and measures 0.51 cm. This is a venous duplex using B-mode, color flow and SSV mid calf is competent and measures 0.49 cm. spectral Doppler. The exam was diagnostic. VL/Venous Duplex US - Hernandez Extrem Interpretation Summary Deep veins of the bilateral lower extremities are patent and compressible segme ntally. There is no evidence of bilateral lower extremity deep vein thrombosis. The bilateral great saphenous veins appea r patent and compressible segmentally. Positive for reflux in the right common femoral vein, saphenofemoral junction, great saphenous vein throughout, cobol developer veins in mid thigh/at knee/mid calf, and small saphenous vein. Positive for reflux in the left common femoral vein, great saphenous vein throu ghout, cobol developer vein in mid thigh/mid calf/distal calf, and accessory saphenous vein in thigh. Ordering Physician: Erinn Castro Referring Physician: N/A Performed By: Jadiel Fuller, RVT
== END | disposition home or self-care (01) ==
LOC: CVS 11:03
PROVIDERS: Referring Provider Physician Assistant; Visit Provider Physician Assistant
DX: I87.332 Chronic venous hypertension (idiopathic) with ulcer and inflammation of left lower extremity (principal); I87.2 Venous insufficiency (chronic) (peripheral)
CPT/HCPCS: 93970

== ENCOUNTER 2024-12-25 09:35 | Day surgery (SDC) | payer MEDICARE, SELFPAY ==
[2024-12-24 08:15] VITALS: BMI 19.8
== END 2024-12-25 12:50 | disposition home or self-care (01) ==
PROVIDERS: PCP Family Medicine; Referring Provider Surgery Trauma Surgery; Visit Provider Surgery Trauma Surgery
DX: I83.223 Varicose veins of left lower extremity with both ulcer of ankle and inflammation (principal); L97.322 Non-pressure chronic ulcer of left ankle with fat layer exposed
CPT/HCPCS: 36482; 36483; C1894

== ENCOUNTER → 2024-12-29 | Outpatient (CLI) | payer MEDICARE, SELFPAY ==
--- NOTE | 2024-12-29 10:21 | VDLE_ITS ---
Reason For Study VL/Venous Duplex US, Unilateral
== END | disposition home or self-care (01) ==
LOC: CVS 10:10
PROVIDERS: PCP Family Medicine; Referring Provider Physician Assistant; Visit Provider Physician Assistant
DX: M79.89 Other specified soft tissue disorders (principal); L97.322 Non-pressure chronic ulcer of left ankle with fat layer exposed; I87.332 Chronic venous hypertension (idiopathic) with ulcer and inflammation of left lower extremity
CPT/HCPCS: 93971